=== PATIENT | male | born 1950 | race Caucasian/White ===

== ENCOUNTER → 2017-11-18 | Day surgery (SDC) | payer BC, OTHER ==
[2017-09-19 08:31] VITALS: BMI 43.0
[2017-11-06 08:57] VITALS: BMI 43.0
[~2017-11-18] VITALS: Ht 172.7 cm; Wt 127.3 kg
[~2017-11-18] MED LIST: ATOR10TA82 PO; ATROPINE SULFATE 0.1 MG/ML 5ML SYR IV PRN; EpHEDrine SULFATE INJ 50 MG/ML AMP IV PRN; KETAMINE HCL INJ 50 MG/ML 10 ML VIAL ONE; LIDOCAINE HCL 2% 2 ML VIAL (20MG/ML) ONE; PROPOFOL IV EMULSION 10 MG/ML 20 ML VIAL IV ONE
[2017-11-18 14:03] VITALS: Ht 172.7 cm; Wt 127.3 kg
--- NOTE | 2017-11-18 14:13 | Endo History and Physical ---
History & Physical Date of Service: Nov 18, 2017. Chief Complaint: screening Referring Physician: Dr Levin History of Present Illness For colonoscopy Past Surgical History Hx Cardiac Surgery: No Hx Internal Defibrillator: No Hx Pacemaker: No Hx Abdominal Surgery: No Hx of Implantable Prosthesis: No Hx Post-Op Nausea and Vomiting: No Hx Cancer Surgery: No Hx Thoracic Surgery: No Hx Orthopedic: No Hx Urinary Tract Surgery: No Family History Colon CA Social History Smoking Status: Never Smoker Hx Substance Use: No Hx Alcohol Use: No Allergies Coded Allergies: No Known Allergies (Unverified , 11/06/17) Current Medications Reported Home Medications Medications Dose Route/Sig Max Daily Dose Days Date Category Lipitor (Atorvastatin Calcium) 10 Mg Tab 10 Mg PO QAM 11/06/17 Reported Vital Signs Weight (Kilograms): 127.27 Height (Feet): 5 Height (Inches): 8 Physical Exam General Appearance: + obese Respiratory/Chest: Respiratory effort: no dyspnea Cardiovascular: Heart Auscultation: RRR Abdomen: Inspection & Palpation: soft Assessment and Plan For screening colonoscopy
--- NOTE | 2017-11-18 14:49 | Discharge Instructions ---
Endoscopy Patient Instructions Date / Procedure(s) Performed Nov 18, 2017. Colonoscopy Allergy Information Coded Allergies: No Known Allergies (Unverified , 11/06/17) Discharge Date / Findings Nov 18, 2017. diverticulosis, polyps Medication Instructions Restart Stopped Medication(s): resume meds Reported Home Medications Medications Dose Route/Sig Max Daily Dose Days Date Category Lipitor (Atorvastatin Calcium) 10 Mg Tab 10 Mg PO QAM 11/06/17 Reported Provider Instructions Activity Restrictions - No exercising or heavy lifting for 24 hours. - Do not drink alcohol the day of the procedure. - Do not drive a car or operate machinery until the day after the procedure. - Do not make any important decisions or sign important papers in 24 hours after the procedure. Following Day: - Return to full activity which may include returning to work/school. Diet Start your diet with liquids and light foods (jello, soup, juice, toast). Then eat your usual diet if not nauseated. Treatment For Common After Affects For mild abdominal pain, bloating, or excessive gas: - Rest - Eat lightly - Lie on right side Follow-Up Information Follow-up with Dr. Levin as scheduled Anesthesia Information What You Should Know You have had a procedure that required some medicine to reduce anxiety and discomfort. This treatment is called moderate sedation. After receiving the treatment, you may be sleepy, but you will be able to breathe on your own. The effects of the treatment may last for several hours. Follow these instructions along with Activity/Diet recommendations noted above: * Do NOT do anything where dizziness or clumsiness would be dangerous. * Rest quietly at home today, then you can be up and about tomorrow. * Have a responsible person stay with you the rest of today. * You may have had an I.V. today. If so, you may take the dressing off later today. Recommendations Call your doctor if: * Trouble breathing * Continuous vomiting for more than 24 hours * Temperature above 101 degrees * Severe abdominal pain or bloating * Pain not relieved by pain medicine ordered * There is increased drainage or redness from any incision * A large amount of rectal bleeding greater than 2-3 tablespoons. (If you had a polyp/s removed or have hemorrhoids, a small amount of blood - from the rectum is to be expected.) * You have any unanswered questions or concerns. IN THE EVENT OF A SERIOUS EMERGENCY, GO TO THE NEAREST EMERGENCY ROOM Your discharge instructions were prepared by provider Liang Mandujano. Patient Instructions Signature Page Jordon Duncan Patient (or Guardian) Signature/Date: I have read and understand the instructions given to me by my caregivers. Caregiver/RN/Doctor Signature/Date: The above-named patient and/or guardian has received patient instructions on this date. + Original Patient Signature Page (only) stays with chart. Please make copy for patient.
--- NOTE | 2017-11-18 14:54 | GI REPORT ---
Procedure Date: 11/18/2017 2:15 PM Procedure: Colonoscopy Indications: Screening for colorectal malignant neoplasm Medicines: Propofol total dose 200 mg IV, Ketamine 20 mg IV, Lidocaine 40 mg IV Complications: No immediate complications. Estimated Blood Loss: Estimated blood loss was minimal. Procedure: Pre-Anesthesia Assessment: - Prior to the procedure, a History and Physical was performed, and patient medications, allergies and sensitivities were reviewed. The patient's tolerance of previous anesthesia was reviewed. - The risks and benefits of the procedure and the sedation options and risks were discussed with the patient. All questions were answered and informed consent was obtained. After I obtained informed consent, the scope was passed under direct vision. Throughout the procedure, the patient's blood pressure, pulse, and oxygen saturations were monitored continuously. The scope was introduced through the anus and advanced to the cecum, identified by appendiceal orifice and ileocecal valve. The colonoscopy was performed without difficulty. The patient tolerated the procedure well. The quality of the bowel preparation was good. Findings: A few diverticula were found in the sigmoid colon. Two sessile polyps were found in the ascending colon. The polyps were 1 to 3 mm in size. These polyps were removed with a cold biopsy forceps. Resection and retrieval were complete. Estimated blood loss was minimal. A 3 mm polyp was found in the transverse colon. The polyp was sessile. The polyp was removed with a cold biopsy forceps. Resection and retrieval were complete. Estimated blood loss was minimal. Impression: - Diverticulosis in the sigmoid colon. - Two 1 to 3 mm polyps in the ascending colon, removed with a cold biopsy forceps. Resected and retrieved. - One 3 mm polyp in the transverse colon, removed with a cold biopsy forceps. Resected and retrieved. Recommendation: - Discharge patient to home (ambulatory). - Continue present medications. - Await pathology results. - Return to primary care physician MARKON. Liang Mandujano M.D. Liang Mandujano MD 11/18/2017 2:54:05 PM This report has been signed electronically. Note Initiated On: 11/18/2017 2:15 PM I attest to the content of the Intraoperative Record and orders documented therein, exceptions below
--- NOTE | 2017-11-18 15:12 | Anesthesiology Progress Note ---
Anesthesia Post Op Note Date & Time Nov 18, 2017 at 15:12 Vital Signs Pain Intensity: 0 Vital Signs Past 12 Hours Date Time Temp Pulse Resp B/P (MAP) Pulse Ox O2 Delivery O2 Flow Rate FiO2 11/18/17 15:07 63 16 141/80 (100) 97 Room Air 11/18/17 14:52 78 16 159/101 (120) 95 Room Air 11/18/17 14:09 36.5 78 18 177/83 (114) 95 Room Air Notes Mental Status: alert / awake / arousable, participated in evaluation Pt Amnestic to Procedure: Yes Nausea / Vomiting: adequately controlled Pain: adequately controlled Airway Patency, RR, SpO2: stable & adequate BP & HR: stable & adequate Hydration State: stable & adequate Anesthetic Complications: no major complications apparent
[2017-11-18 15:22] VITALS: BP 138/83; PULSE 61; O2SAT 97
== END | disposition home or self-care (01) ==
LOC: C.GI 13:30
PROVIDERS: ATTEND Internal Medicine Gastroenterology
DX: Z12.11 Encounter for screening for malignant neoplasm of colon (principal); K57.32 Diverticulitis of large intestine without perforation or abscess without bleeding; D12.2 Benign neoplasm of ascending colon; D12.3 Benign neoplasm of transverse colon; I10 Essential (primary) hypertension; Z79.899 Other long term (current) drug therapy; E66.01 Morbid (severe) obesity due to excess calories

== ENCOUNTER 2025-05-28 18:52 | Inpatient (IN) ==
--- NOTE | 2025-05-28 19:13 | Emergency Department Note ---
Impression & Plan Septic shock, Anaplasmosis ED Provider Note Provider: Chris Nevarez MD CHIEF COMPLAINT: Weakness, possible confusion, chills HISTORY OF PRESENT ILLNESS: Patient is a 75-year-old gentleman history of hyperlipidemia and diabetes presenting here today via ambulance from home. Patient evidently's been sick over approximately past 2 weeks by his EMS report. Patient states that during our test week he got caught in the rain and got wet and since then he has been having some weakness and some chills. He does report that his tends to keep the air conditioner fairly high. Saw his primary doctor at [facility] last week for evaluation and per his report no clear diagnosis. Has had ongoing generalized weakness. This worsened particularly over the last day or so according to EMS report. Patient states has had some ongoing chills but no specific pain. Family thought according to the ambulance report that he might been a little short of breath but he denies this to me. They stated that he seems somewhat confused and reported that the patient was putting on my close and was not himself at home. Patient denies this. Denies feeling confused. States some generalized weakness. Denies any significant wounds other than a small scrape on the right stevenson. Denies falls. Denies headache or dizziness right now or lightheadedness. Denies chest pain or again shortness of breath to me. Denies nausea vomiting but states he might be just a little bit constipated. Does endorse some urinary frequency. Denies burning with urination. Has taken ibuprofen last couple days in the morning but nothing this afternoon. Has been trying to drink a little bit of water i in addition to his diet Arnholly Jones's. PAST MEDICAL HISTORY: As noted above MEDICATIONS: Reviewed home medications SOCIAL HISTORY: Non-smoker, lives at home with , dog, and 2 cats PHYSICAL EXAM: GENERAL: alert and oriented in no acute distress on stretcher Head: normocephalic and atraumatic EYES: No injection, discharge or icterus. PERRL, EOMI. NECK: Trachea midline. Good range of motion ENT: Mucous membranes pink and moist. LUNGS: Airway patent. No retractions. Breath sounds clear with good air entry bilaterally. HEART: Irregular tachycardic rate and rhythm. No chest wall tenderness ABDOMEN: Soft and non-tender, without guarding or rebound. No flank tenderness. No masses appreciated. SKIN: Acyanotic, warm, dry, without rashes EXTREMITIES: Without swelling, tenderness or deformity other than a small healing scab on the right stevenson without redness. Soft compartments to lower extremities. NEUROLOGICAL: No focal deficits. No aphasia. No facial droop or slurred speech. Normal strength and tone in the extremities. Sensation to gross touch normal. EK bpm left axis right bundle branch block what appears to be likely a sinus tach with PACs as opposed to atrial flutter or A-fib. No ST segment elevation. QTc 464. CONTINUOUS CARDIAC MONITORING: was ordered and showed a heart rate of 90s-100s bpm in normal sinus rhythm/sinus tachycardia with PACs Patient's laboratory studies and imaging reviewed. Differential includes Infection, dehydration, metabolic abnormality, hypo/hyperglycemia, electrolyte disturbance, anemia, hypoxia, cardiac sources, intracerebral event, toxicologic, neurologic, as well as other pathologies. IMPRESSION/MEDICAL DECISION MAKING: No specific focal numbness or weakness at this time. No slurred speech. Seems less likely to CVA and does not appear meningitic. He is febrile here and tachycardic. Appears likely PACs rather than A-fib. No chest pain or shortness of breath report of the question of shortness of breath at home. Given 2 L IV normal saline fluids administered as his initial blood pressure is hypotensive. He is however denying significant lightheadedness or dizziness. Lactate and cultures send [id number] blood work obtained. Benign abdomen on exam but given his hypotension and fever without a clear source upon initial assessment, we will proceed with broad septic workup including CT imaging of the abdomen pelvis and a CTA of the chest to exclude pneumonia, PE, intra-abdominal abnormality or infection/abscess, and add a CT of the head to exclude any intracranial bleed although no traumas reported he has been reported to be in maybe a little bit confused. Again does not appear lethargic at this time just generally weak. Given a dose of Tylenol here for the fever. Lactate returns elevated 4.7. Broad-spectrum Zosyn ordered for antibiotic coverage pending further source identification. Repeat blood pressure on the left arm shows systolic blood pressure of 101 versus 60s systolic in the right arm. Creatinine 1.6 with BUN of 28 and a mild anion gap of 14 likely from his lactate elevation. Mild hyponatremia of 131 with normal potassium. Bili 1.2 but no significant LFT abnormalities. No evidence of hepatitis or pancreatitis. White blood cell count 6.3 with a hemoglobin of 13 and a platelet count of 206. Lyme/anaplasmosis/babesiosis screening labs were sent. UA pending collection. Procalcitonin 1.08. Again ordered broad coverage with Zosyn, doxycycline, and vancomycin. Blood smear concerning for anaplasmosis per lab. Again has been covered with IV doxycycline. Blood pressures later borderline started on low-dose Levophed. A total of 2.5 L normal saline ordered for fluids. Respiratory viral panel is negative. CT scan of the head, chest, and abdomen pelvis per radiology report without acute pneumonia or PE (some pulmonary fibrosis noted), no acute intra- abdominal findings noted without evidence of diverticulitis, no acute intracranial abnormality. Urinalysis pending collection. Discussed with the hospitalist team for further care here. Temperature is improving. Blood pressure improving with Levophed. Urinalysis appears negative. Did reach out discussed with the ICU [facility] regarding the case as well as he will require ICU admission with the need for vasopressors. DIAGNOSIS: Septic shock, anaplasmosis, weakness DISPOSITION: Hospitalist will evaluate Patient was agreeable with this plan. Critical Care I have personally spent 55 minutes of critical care time in the direct management of this patient. This includes bedside care, interpretation of diagnostic studies, and testing, discussion with consultants, patient, and family members, and other required patient management activities. These 55 minutes is in excess of all separately billable procedures. Past Med/Surg History Problem List (Updated 05/29/25 @ 00:01 by Miri Busch DO) Hyperlipidemia Acute metabolic encephalopathy Lactic acidosis Dehydration fever Acute kidney injury Hyperlipidemia associated with type 2 diabetes mellitus Diabetes mellitus Septic shock Anaplasmosis Social History Smoking Status: Never smoker Preferred Language: Japanese Feels Safe at Home: Yes Allergies Allergies Allergy/AdvReac Type Severity Reaction Status Date / Time No Known Allergies Allergy Verified 05/28/25 20:48 Home Meds Home Medications Medication Instructions Recorded Confirmed atorvastatin 40 mg tablet 40 mg PO DAILY 05/28/25 05/28/25 empagliflozin 25 mg tablet 25 mg PO DAILY 05/28/25 05/28/25 (Jardiance) lisinopril 5 mg tablet 5 mg PO DAILY 05/28/25 05/28/25 metformin 500 mg tablet,extended 1,000 mg PO BID 05/28/25 05/28/25 release 24 hr Results & Data (ED) Vital Signs Vital Signs - 24 hr 05/28/25 18:59 05/28/25 19:05 05/28/25 19:15 Temperature 39.9 C H Temperature Source Oral Pulse Rate 123 H 115 H 104 H Pulse Rate [Apical] Pulse Rate from SpO2 Sensor Respiratory Rate 30 H 32 H Respiratory Effort / Characteristics Short of Breath Respiratory Depth Shallow Respiratory Pattern Tachypnea Blood Pressure 76/58 L 82/51 L Blood Pressure [Right Arm] Blood Pressure Mean 64 61 Blood Pressure Mean [Right Arm] Blood Pressure Position Lying Blood Pressure Position [Right Arm] Pulse Oximetry 91 91 Oxygen Delivery Method Room Air Room Air Sepsis Recent Fever Within 48 Hours Yes Sepsis New/Unexplained Change in Mental Status No Sepsis Action Taken by Nursing Physician Notified 05/28/25 19:58 05/28/25 20:00 05/28/25 20:06 Temperature Temperature Source Pulse Rate 105 H Pulse Rate [Apical] Pulse Rate from SpO2 Sensor 104 H Respiratory Rate 31 H Respiratory Effort / Characteristics Respiratory Depth Respiratory Pattern Blood Pressure 81/43 L 70/43 L 69/42 L Blood Pressure [Right Arm] Blood Pressure Mean 44 53 51 Blood Pressure Mean [Right Arm] Blood Pressure Position Blood Pressure Position [Right Arm] Pulse Oximetry 93 Oxygen Delivery Method Sepsis Recent Fever Within 48 Hours Sepsis New/Unexplained Change in Mental Status Sepsis Action Taken by Nursing 05/28/25 20:22 05/28/25 20:24 05/28/25 20:30 Temperature Temperature Source Pulse Rate 107 H 109 H Pulse Rate [Apical] Pulse Rate from SpO2 Sensor 102 H 107 H Respiratory Rate 36 H 33 H Respiratory Effort / Characteristics Respiratory Depth Respiratory Pattern Blood Pressure 75/46 L 76/59 L Blood Pressure [Right Arm] Blood Pressure Mean 53 64 Blood Pressure Mean [Right Arm] Blood Pressure Position Blood Pressure Position [Right Arm] Pulse Oximetry 95 95 Oxygen Delivery Method Sepsis Recent Fever Within 48 Hours Sepsis New/Unexplained Change in Mental Status Sepsis Action Taken by Nursing 05/28/25 20:35 05/28/25 20:35 05/28/25 20:40 Temperature 38.9 C H Temperature Source Oral Pulse Rate 106 H Pulse Rate [Apical] 105 H Pulse Rate from SpO2 Sensor Respiratory Rate 30 H 33 H Respiratory Effort / Characteristics Non-Labored Respiratory Depth Respiratory Pattern Tachypnea Blood Pressure 77/49 L 85/59 L Blood Pressure [Right Arm] 77/49 L Blood Pressure Mean 52 72 Blood Pressure Mean [Right Arm] 58 Blood Pressure Position Blood Pressure Position [Right Arm] Lying Pulse Oximetry 94 94 Oxygen Delivery Method Room Air Sepsis Recent Fever Within 48 Hours Sepsis New/Unexplained Change in Mental Status Sepsis Action Taken by Nursing 05/28/25 20:45 05/28/25 20:50 05/28/25 20:50 Temperature Temperature Source Pulse Rate 108 H 107 H Pulse Rate [Apical] 104 H Pulse Rate from SpO2 Sensor Respiratory Rate 34 H 30 H 35 H Respiratory Effort / Characteristics Non-Labored Respiratory Depth Respiratory Pattern Rapid/Shallow Blood Pressure 88/57 L 76/58 L Blood Pressure [Right Arm] 76/58 L Blood Pressure Mean 69 63 Blood Pressure Mean [Right Arm] 64 Blood Pressure Position Blood Pressure Position [Right Arm] Lying Pulse Oximetry 95 96 95 Oxygen Delivery Method Room Air Sepsis Recent Fever Within 48 Hours Sepsis New/Unexplained Change in Mental Status Sepsis Action Taken by Nursing 05/28/25 20:55 05/28/25 20:56 05/28/25 21:00 Temperature Temperature Source Pulse Rate Pulse Rate [Apical] 103 H 107 H Pulse Rate from SpO2 Sensor Respiratory Rate 28 H Respiratory Effort / Characteristics Non-Labored Spontaneous Respiratory Depth Respiratory Pattern Blood Pressure 98/61 L Blood Pressure [Right Arm] 98/61 L 87/57 L Blood Pressure Mean 76 Blood Pressure Mean [Right Arm] 73 67 Blood Pressure Position Blood Pressure Position [Right Arm] Lying Pulse Oximetry 95 Oxygen Delivery Method Sepsis Recent Fever Within 48 Hours Sepsis New/Unexplained Change in Mental Status Sepsis Action Taken by Nursing 05/28/25 21:05 05/28/25 21:10 05/28/25 21:15 Temperature Temperature Source Pulse Rate 110 H Pulse Rate [Apical] Pulse Rate from SpO2 Sensor Respiratory Rate 29 H Respiratory Effort / Characteristics Respiratory Depth Respiratory Pattern Blood Pressure 89/55 L 90/57 L 93/61 L Blood Pressure [Right Arm] Blood Pressure Mean 67 65 70 Blood Pressure Mean [Right Arm] Blood Pressure Position Blood Pressure Position [Right Arm] Pulse Oximetry 95 Oxygen Delivery Method Sepsis Recent Fever Within 48 Hours Sepsis New/Unexplained Change in Mental Status Sepsis Action Taken by Nursing 05/28/25 21:20 05/28/25 21:35 05/28/25 21:40 Temperature Temperature Source Pulse Rate Pulse Rate [Apical] Pulse Rate from SpO2 Sensor Respiratory Rate Respiratory Effort / Characteristics Respiratory Depth Respiratory Pattern Blood Pressure 89/58 L 136/86 110/86 Blood Pressure [Right Arm] Blood Pressure Mean 63 90 93 Blood Pressure Mean [Right Arm] Blood Pressure Position Blood Pressure Position [Right Arm] Pulse Oximetry Oxygen Delivery Method Sepsis Recent Fever Within 48 Hours Sepsis New/Unexplained Change in Mental Status Sepsis Action Taken by Nursing 05/28/25 21:40 05/28/25 21:50 05/28/25 21:50 Temperature Temperature Source Pulse Rate Pulse Rate [Apical] Pulse Rate from SpO2 Sensor Respiratory Rate Respiratory Effort / Characteristics Respiratory Depth Respiratory Pattern Blood Pressure 110/86 103/83 103/83 Blood Pressure [Right Arm] Blood Pressure Mean 93 94 94 Blood Pressure Mean [Right Arm] Blood Pressure Position Blood Pressure Position [Right Arm] Pulse Oximetry Oxygen Delivery Method Sepsis Recent Fever Within 48 Hours Sepsis New/Unexplained Change in Mental Status Sepsis Action Taken by Nursing 05/28/25 21:50 05/28/25 21:54 05/28/25 22:00 Temperature Temperature Source Pulse Rate 107 H Pulse Rate [Apical] Pulse Rate from SpO2 Sensor 105 H Respiratory Rate 33 H Respiratory Effort / Characteristics Respiratory Depth Respiratory Pattern Blood Pressure 103/83 120/78 Blood Pressure [Right Arm] Blood Pressure Mean 94 94 Blood Pressure Mean [Right Arm] Blood Pressure Position Blood Pressure Position [Right Arm] Pulse Oximetry 93 Oxygen Delivery Method Sepsis Recent Fever Within 48 Hours Sepsis New/Unexplained Change in Mental Status Sepsis Action Taken by Nursing 05/28/25 22:00 05/28/25 22:03 05/28/25 22:05 Temperature Temperature Source Pulse Rate 105 H Pulse Rate [Apical] Pulse Rate from SpO2 Sensor 100 H Respiratory Rate 28 H Respiratory Effort / Characteristics Respiratory Depth Respiratory Pattern Blood Pressure 120/78 112/76 Blood Pressure [Right Arm] Blood Pressure Mean 94 81 Blood Pressure Mean [Right Arm] Blood Pressure Position Blood Pressure Position [Right Arm] Pulse Oximetry 94 Oxygen Delivery Method Sepsis Recent Fever Within 48 Hours Sepsis New/Unexplained Change in Mental Status Sepsis Action Taken by Nursing 05/28/25 22:05 05/28/25 22:06 05/28/25 22:21 Temperature Temperature Source Pulse Rate 97 H Pulse Rate [Apical] Pulse Rate from SpO2 Sensor 96 H Respiratory Rate 29 H Respiratory Effort / Characteristics Respiratory Depth Respiratory Pattern Blood Pressure 112/76 80/45 L Blood Pressure [Right Arm] Blood Pressure Mean 81 56 Blood Pressure Mean [Right Arm] Blood Pressure Position Blood Pressure Position [Right Arm] Pulse Oximetry 94 Oxygen Delivery Method Sepsis Recent Fever Within 48 Hours Sepsis New/Unexplained Change in Mental Status Sepsis Action Taken by Nursing 05/28/25 22:25 05/28/25 22:35 Temperature Temperature Source Pulse Rate Pulse Rate [Apical] Pulse Rate from SpO2 Sensor Respiratory Rate Respiratory Effort / Characteristics Respiratory Depth Respiratory Pattern Blood Pressure 82/53 L 90/57 L Blood Pressure [Right Arm] Blood Pressure Mean 65 67 Blood Pressure Mean [Right Arm] Blood Pressure Position Blood Pressure Position [Right Arm] Pulse Oximetry Oxygen Delivery Method Sepsis Recent Fever Within 48 Hours Sepsis New/Unexplained Change in Mental Status Sepsis Action Taken by Nursing Laboratory Data 05/28/25 19:05 05/28/25 19:05 Lab Results 05/28/25 05/28/25 05/28/25 Range/Units 19:05 19:20 21:31 WBC 6.36 (4.8-10.8) K/ul RBC 4.32 L (4.70-6.10) M/uL Hgb 13.0 L (14.0-18.0) g/dl Hct 39.1 L (42.0-52.0) % MCV 90.5 (80.0-100.0) fL MCH 30.1 (25.0-34.0) pg MCHC 33.2 (32.0-36.0) g/dL RDW Std Deviation 50.2 H (36.4-46.3) fL RDW Coeff of Noemy 15.1 H (11.5-14.5) % Plt Count 206 (130-400) K/uL MPV 10.1 (9.4-12.4) fL Immature Gran % (Auto) 0.5 % Neut % (Auto) 80.3 % Lymph % (Auto) 13.8 % Bailey % (Auto) 5.2 % Eos % (Auto) 0.0 % Baso % (Auto) 0.2 % Neut # (Auto) 5.11 (1.40-6.50) K/uL Lymph # (Auto) 0.88 L (1.20-3.40) K/uL Bailey # (Auto) 0.33 (0.11-0.59) K/uL Eos # (Auto) 0.00 (0.00-0.50) K/uL Baso # (Auto) 0.01 (0.00-0.20) K/uL Immature Gran # (Auto) 0.03 (0.01-0.20) K/uL PT 13.3 H (9.0-12.0) Seconds INR 1.2 H (0.9-1.1) Sodium 131 L (136-145) mmol/L Potassium 4.5 (3.5-5.1) mmol/L Chloride 97 L (98-107) mmol/L Carbon Dioxide 20 L (21-32) mmol/L Anion Gap 14 H (3-11) BUN 28 H (6-23) mg/dl Creatinine 1.64 H (0.6-1.4) mg/dl Est Cr Clr Drug Dosing Not Reportable eGFR 43.62 BUN/Creatinine Ratio 17.1 (10-20) Glucose 267 H (70-99(Fasting)) mg/dl Lactate 4.7 H* 1.0 (0.4-2.0) mmol/L Calcium 8.7 (8.6-10.3) mg/dl Phosphorus 1.3 L* (2.5-4.9) mg/dl Magnesium 0.9 L* (1.7-2.4) mg/dl Total Bilirubin 1.2 H (0.2-1.0) mg/dl AST 31 (13-39) U/L ALT 28 (7-52) U/L Alkaline Phosphatase 63 (34-104) U/L Troponin I High Sens 27.4 H 14.4 D (0-20) pg/ml Total Protein 7.2 (6.0-8.3) gm/dl Albumin 3.3 L (3.4-5.0) gm/dl Globulin 3.9 (2.5-4.0) gm/dl Albumin/Globulin Ratio 0.8 L (0.9-2) Lipase 20 (11-82) U/L Procalcitonin 1.08 H (0-0.5) ng/ml Random Cortisol 45.14 mcg/dl Adenovirus (PCR) Not Detected (NotDetected) Anaplasma Smear See Comment A B. pertussis DNA (PCR) Not Detected (NotDetected) B.parapertussis DNA PCR Not Detected (NotDetected) Lyme Disease Screen Negative (Negative) C. pneumoniae DNA (PCR) Not Detected (NotDetected) Coronavirus OC43 (PCR) Not Detected (NotDetected) Coronavirus HKU1 (PCR) Not Detected (NotDetected) Coronavirus 229E (PCR) Not Detected (NotDetected) SARS-CoV-2 (PCR) Not Detected (NotDetected) Coronavirus NL63 (PCR) Not Detected (NotDetected) Human Metapneumovir PCR Not Detected (NotDetected) Influenza Type A (PCR) Not Detected (NotDetected) Influenza Type B (PCR) Not Detected (NotDetected) M. pneumoniae (PCR) Not Detected (NotDetected) Parainfluenza 1 (PCR) Not Detected (NotDetected) Parainfluenza 2 (PCR) Not Detected (NotDetected) Parainfluenza 3 (PCR) Not Detected (NotDetected) Parainfluenza 4 (PCR) Not Detected (NotDetected) RSV (PCR) Not Detected (NotDetected) Entero/Rhino (PCR) Not Detected (NotDetected) Administered Medications Norepinephrine Bitartrate (Levophed/D5w) 4 mg in 250 mls @ 21.769 mls/hr IV .[id number] [facility]; Protocol Stop: 06/27/25 20:29 Last Titration: 05/28/25 22:31 Dose: 0.05 mcg/kg/min, 21.8 mls/hr Documented By: ALISSA Co-signed By: BS Titration: 05/28/25 22:07 Dose: 0.03 mcg/kg/min, 13.1 mls/hr Documented By: FEMI Co-signed By: ALISSA Titration: 05/28/25 21:50 Dose: 0.05 mcg/kg/min, 21.8 mls/hr Documented By: ALISSA Co-signed By: QGV Titration: 05/28/25 21:39 Dose: 0.07 mcg/kg/min, 30.5 mls/hr Documented By: ALISSA Co-signed By: NAW Titration: 05/28/25 20:51 Dose: 0.09 mcg/kg/min, 39.2 mls/hr Documented By: ALISSA Co-signed By: FEMI Titration: 05/28/25 20:27 Dose: 0.07 mcg/kg/min, 30.5 mls/hr Documented By: ALISSA Co-signed By: NAHED Admin: 05/28/25 20:17 Dose: 0.05 mcg/kg/min, 21.8 mls/hr Documented By: ALISSA Co-signed By: Lactated Ringer's (Lr) 1,000 mls @ 150 mls/hr IV .Q6H40M JOEY Stop: 05/29/25 04:39 Last Admin: 05/28/25 22:40 Dose: 150 mls/hr Documented By: ALISSA Discontinued Medications Acetaminophen (Acetaminophen 500 Mg Tab) 1,000 mg PO NOW STA Stop: 05/28/25 19:13 Last Admin: 05/28/25 19:26 Dose: 1,000 mg Documented By: ALISSA Sodium Chloride (Nss) 1,000 mls @ 999 mls/hr IV .Q1H1M JOEY Stop: 05/28/25 21:15 Last Infusion: 05/28/25 20:06 Dose: Infused Documented By: Admin: 05/28/25 19:26 Dose: 999 mls/hr Documented By: Infusion: 05/28/25 19:26 Dose: Infused Documented By: Admin: 05/28/25 19:20 Dose: 999 mls/hr Documented By: ALISSA Piperacillin Sod/Tazobactam Sod (Zosyn) 4.5 gm in 100 mls @ 200 mls/hr IV NOW ONE; Protocol Stop: 05/28/25 19:59 Last Infusion: 05/28/25 20:05 Dose: Infused Documented By: Infusion: 05/28/25 20:00 Dose: Infused Documented By: Admin: 05/28/25 19:38 Dose: 200 mls/hr Documented By: ALISSA Doxycycline Hyclate 100 mg/ (Dextrose) 100 mls @ 50 mls/hr IV NOW STA Stop: 05/28/25 21:46 Last Infusion: 05/28/25 22:38 Dose: Infused Documented By: Admin: 05/28/25 20:20 Dose: 50 mls/hr Documented By: ALISSA Sodium Chloride (Nss) 500 mls @ 999 mls/hr IV .Q31M ONE Stop: 05/28/25 20:32 Last Infusion: 05/28/25 22:39 Dose: Infused Documented By: Admin: 05/28/25 20:34 Dose: 999 mls/hr Documented By: ALISSA Vancomycin HCl 2,250 mg/ (Sodium Chloride) 545 mls @ 200 mls/hr IV NOW ONE Stop: 05/28/25 22:45 Last Infusion: 05/28/25 23:52 Dose: Infused Documented By: Admin: 05/28/25 20:55 Dose: 200 mls/hr Documented By: ALISSA Ioversol (Optiray 320 125ml) 118 ml IV ONCE ONE Stop: 05/28/25 19:47 Last Admin: 05/28/25 19:46 Dose: 118 ml Documented By: DAWIT Miscellaneous (Stat Iv Infusion Titration Per Protocol) 1 each N/A NOW STA Stop: 05/28/25 20:17 Last Admin: 05/28/25 20:57 Dose: 1 each Documented By: ALISSA Norepinephrine Bitartrate (Norepinephrine/D5w 4 Mg/250 Ml) Confirm Administered Dose 4 mg IV .STK-MED ONE Stop: 05/28/25 19:36 Last Admin: 05/28/25 20:57 Dose: Not Given Documented By: ALISSA Imaging Data Radiologist's Impression: Abdomen/Pelvis CT 05/28/25 19:06 Exam(s): CT ABDOMEN + PELVIS With Contrast EXAM: CT Abdomen and Pelvis With Intravenous Contrast CLINICAL HISTORY: Reason for exam: fever, weak, tachy. TECHNIQUE: Axial computed tomography images of the abdomen and pelvis with intravenous contrast. CTDI is 37 mGy and DLP is 1612 mGy-cm. Automated exposure control was utilized for the study. A dose lowering technique was utilized adhering to the principles of ALARA. CONTRAST: Contrast must be dictated COMPARISON: None FINDINGS: Limitations: Exam limited secondary to patient respiratory motion. Please see separate dictation for details of intrathoracic contents. Lung bases: Unremarkable. No mass. No consolidation. ABDOMEN: Liver: Hepatomegaly. Hepatic steatosis. Gallbladder and bile ducts: Unremarkable. No calcified stones. No ductal dilation. Pancreas: Unremarkable. No mass. No ductal dilation. Spleen: Spleen is unremarkable. Adrenals: Unremarkable. No mass. Kidneys and ureters: Simple 1.9 cm right renal cysts. No follow-up of these simple cysts is necessary. No hydronephrosis. Stomach and bowel: Diverticulosis without evidence of diverticulitis. No obstruction. PELVIS: Appendix: Normal-appearing appendix. Bladder: Unremarkable. No mass. Reproductive: Unremarkable as visualized. ABDOMEN and PELVIS: Intraperitoneal space: Unremarkable. No free air. No significant fluid collection. Bones/joints: Advanced multilevel degenerative changes of the lumbar spine. Soft tissues: Unremarkable. Vasculature: Unremarkable. No abdominal aortic aneurysm. Lymph nodes: Unremarkable. No enlarged lymph nodes. IMPRESSION: No acute findings in the abdomen or pelvis. Hepatomegaly with hepatic steatosis Diverticulosis without evidence of diverticulitis Electronically signed by: Chad Hilton MD 05/28/25 21:02 PM Chest CTA 05/28/25 19:06 Exam(s): CTA CHEST EXAM: CT Angiography Chest With Intravenous Contrast CLINICAL HISTORY: Reason for exam: PE, fever, tachy, weak. TECHNIQUE: Axial computed tomographic angiography images of the chest with intravenous contrast. CTDI is 37 mGy and DLP is 1612 mGy-cm. Automated exposure control was utilized for the study. A dose lowering technique was utilized adhering to the principles of ALARA. MIP reconstructed images were created and reviewed. COMPARISON: No relevant prior studies available. FINDINGS: Limitations: Exam limited secondary to patient respiratory motion. Pulmonary arteries: Unremarkable. No large central pulmonary embolus present on this exam. Aorta: No acute findings. No thoracic aortic aneurysm. Lungs: Diffuse pulmonary fibrosis. No lobar consolidations. Pleural space: Unremarkable. No significant effusion. No pneumothorax. Heart: Mild aortic and mitral valve calcifications. No cardiomegaly. No significant pericardial effusion. No evidence of RV dysfunction. Bones/joints: No acute fracture. No dislocation. Soft tissues: Unremarkable. Lymph nodes: Unremarkable. No enlarged lymph nodes. Liver: Hepatic steatosis. Spleen: Splenomegaly. IMPRESSION: Exam limited secondary to patient respiratory motion No large central pulmonary embolus Diffuse pulmonary fibrosis Hepatic steatosis Hepatomegaly Electronically signed by: Chad Hilton MD 05/28/25 20:[address] 05/28/25 19:06 Exam(s): CT HEAD Without Contrast EXAM: CT Head Without Intravenous Contrast CLINICAL HISTORY: Reason for exam: weak, confusion, fever. TECHNIQUE: Axial computed tomography images of the head/brain without intravenous contrast. CTDI is 37 mGy and DLP is 1612 mGy-cm. Automated exposure control was utilized for the study. A dose lowering technique was utilized adhering to the principles of ALARA. COMPARISON: No relevant prior studies available. FINDINGS: Brain: mild ischemic microangiopathy. No hemorrhage. Ventricles: Unremarkable. No ventriculomegaly. Bones/joints: Unremarkable. No acute fracture. Soft tissues: Unremarkable. Vasculature: Vascular calcification of the left vertebral artery. Sinuses: Unremarkable as visualized. No acute sinusitis. Mastoid air cells: Unremarkable as visualized. No mastoid effusion. IMPRESSION: No acute findings in the head/brain. Electronically signed by: Chad Hilton MD 05/28/25 21:12 PM Discharge Plan Visit Data Chief Complaint: Illness Stated Complaint: Illness ED Provider: Chris Nevarez Discharge Problem: Septic shock, Anaplasmosis Patient Disposition: Admitted As Inpatient Condition: Critical Discharge Instructions Interventions: ED Discharge Assessment Last Done: 05/28/25 23:26
[2025-05-28] MEDS: SODIUM CHLORIDE 0.9% 1,000 ML IV SCH (19:20)
[2025-05-28 19:25] LABS: Hematocrit (blood only) 39.1 % (42.0-52.0); Hemoglobin 13.0 g/dl (14.0-18.0); Immature Granulocytes # (auto) 0.03 K/uL (0.01-0.20); Immature Granulocytes % (auto) 0.5 %; Mean Corpuscular Hemoglobin 30.1 pg (25.0-34.0); Mean Corpuscular Volume 90.5 fL (80.0-100.0); Platelet Count 206 K/uL (130-400); RDW Standard Deviation 50.2 fL (36.4-46.3); Red Blood Count 4.32 M/uL (4.70-6.10); White Blood Count 6.36 K/ul (4.8-10.8)
[2025-05-28] MEDS: ACETAMINOPHEN 500 MG TAB PO STA (19:26)
[2025-05-28] MEDS: PIPERACILLIN/TAZOBACTAM 4.5 GM/100 ML BAG IV ONE (19:38)
[2025-05-28 19:42] LABS: Alanine Aminotransferase 28 U/L (7-52); Albumin Globulin Ratio 0.8 (0.9-2); Alkaline Phosphatase 63 U/L (34-104); Anion Gap 14 (3-11); Bilirubin,Total 1.2 mg/dl (0.2-1.0); Blood Urea Nitrogen 28 mg/dl (6-23); Calcium 8.7 mg/dl (8.6-10.3); Carbon Dioxide 20 mmol/L (21-32); Chloride 97 mmol/L (98-107); Globulin 3.9 gm/dl (2.5-4.0); Glucose 267 mg/dl (70-99(Fasting)); Lipase 20 U/L (11-82); Potassium 4.5 mmol/L (3.5-5.1); Sodium 131 mmol/L (136-145); Total Protein 7.2 gm/dl (6.0-8.3)
[2025-05-28] MEDS: OPTIRAY 320 125ml IV ONE (19:46)
[2025-05-28 19:47] LABS: Procalcitonin 1.08 ng/ml (0-0.5)
[2025-05-28 19:52] LABS: INR 1.2 (0.9-1.1); Prothrombin Time 13.3 Seconds (9.0-12.0)
[2025-05-28] MEDS ORDERED: VANCOMYCIN CONSULT ACTIVE PRN (20:02)
[2025-05-28 20:12] LABS: Lyme Screen Rflx Confirmation Negative (Negative)
[2025-05-28] MEDS: NOREPINEPHRINE/D5W 4 MG/250 ML PLCT IV SCH (20:17)
[2025-05-28 20:18] LABS: Chlamydia pneumoniae PCR Not Detected (NotDetected); Coronavirus 229E PCR Not Detected (NotDetected); Coronavirus CoV-2 (COVID19)PCR Not Detected (NotDetected); Coronavirus HKU1 PCR Not Detected (NotDetected); Coronavirus NL63 PCR Not Detected (NotDetected); Coronavirus OC43PCR Not Detected (NotDetected); Human Metapneumovirus PCR Not Detected (NotDetected); Parainfluenza Virus 1 PCR Not Detected (NotDetected); Parainfluenza Virus 2 PCR Not Detected (NotDetected); Parainfluenza Virus 3 PCR Not Detected (NotDetected); Parainfluenza Virus 4 PCR Not Detected (NotDetected); Respiratory Syncytial VirusPCR Not Detected (NotDetected); Rhinovirus/Enterovirus PCR Not Detected (NotDetected)
[2025-05-28] MEDS: DOXYCYCLINE HYCLATE 100 MG in DEXTROSE 5% MINI-B 100 ML IV STA (20:20)
[2025-05-28] MEDS: SODIUM CHLORIDE 0.9% 500 ML IV ONE (20:34)
[2025-05-28] MEDS: VANCOMYCIN HCL 2,250 MG in SODIUM CHLORIDE 0.9% 500 ML IV ONE (20:55)
[2025-05-28] MEDS: STAT IV Infusion **Titration per Protocol STA (20:57)
[2025-05-28] MEDS: NOREPINEPHRINE/D5W 4 MG/250 ML IV ONE (20:57)
--- NOTE | 2025-05-28 20:58 | CT Scan Report ---
Exam(s): CTA CHEST EXAM: CT Angiography Chest With Intravenous Contrast CLINICAL HISTORY: Reason for exam: PE, fever, tachy, weak. TECHNIQUE: Axial computed tomographic angiography images of the chest with intravenous contrast. CTDI is 37 mGy and DLP is 1612 mGy-cm. Automated exposure control was utilized for the study. A dose lowering technique was utilized adhering to the principles of ALARA. MIP reconstructed images were created and reviewed. COMPARISON: No relevant prior studies available. FINDINGS: Limitations: Exam limited secondary to patient respiratory motion. Pulmonary arteries: Unremarkable. No large central pulmonary embolus present on this exam. Aorta: No acute findings. No thoracic aortic aneurysm. Lungs: Diffuse pulmonary fibrosis. No lobar consolidations. Pleural space: Unremarkable. No significant effusion. No pneumothorax. Heart: Mild aortic and mitral valve calcifications. No cardiomegaly. No significant pericardial effusion. No evidence of RV dysfunction. Bones/joints: No acute fracture. No dislocation. Soft tissues: Unremarkable. Lymph nodes: Unremarkable. No enlarged lymph nodes. Liver: Hepatic steatosis. Spleen: Splenomegaly. IMPRESSION: Exam limited secondary to patient respiratory motion No large central pulmonary embolus Diffuse pulmonary fibrosis Hepatic steatosis Hepatomegaly Electronically signed by: Chad Hitlon MD 05/28/25 20:57 PM
--- NOTE | 2025-05-28 21:04 | CT Scan Report ---
Exam(s): CT ABDOMEN + PELVIS With Contrast EXAM: CT Abdomen and Pelvis With Intravenous Contrast CLINICAL HISTORY: Reason for exam: fever, weak, tachy. TECHNIQUE: Axial computed tomography images of the abdomen and pelvis with intravenous contrast. CTDI is 37 mGy and DLP is 1612 mGy-cm. Automated exposure control was utilized for the study. A dose lowering technique was utilized adhering to the principles of ALARA. CONTRAST: Contrast must be dictated COMPARISON: None FINDINGS: Limitations: Exam limited secondary to patient respiratory motion. Please see separate dictation for details of intrathoracic contents. Lung bases: Unremarkable. No mass. No consolidation. ABDOMEN: Liver: Hepatomegaly. Hepatic steatosis. Gallbladder and bile ducts: Unremarkable. No calcified stones. No ductal dilation. Pancreas: Unremarkable. No mass. No ductal dilation. Spleen: Spleen is unremarkable. Adrenals: Unremarkable. No mass. Kidneys and ureters: Simple 1.9 cm right renal cysts. No follow-up of these simple cysts is necessary. No hydronephrosis. Stomach and bowel: Diverticulosis without evidence of diverticulitis. No obstruction. PELVIS: Appendix: Normal-appearing appendix. Bladder: Unremarkable. No mass. Reproductive: Unremarkable as visualized. ABDOMEN and PELVIS: Intraperitoneal space: Unremarkable. No free air. No significant fluid collection. Bones/joints: Advanced multilevel degenerative changes of the lumbar spine. Soft tissues: Unremarkable. Vasculature: Unremarkable. No abdominal aortic aneurysm. Lymph nodes: Unremarkable. No enlarged lymph nodes. IMPRESSION: No acute findings in the abdomen or pelvis. Hepatomegaly with hepatic steatosis Diverticulosis without evidence of diverticulitis Electronically signed by: Chad Hilton MD 05/28/25 21:02 PM
--- NOTE | 2025-05-28 21:13 | CT Scan Report ---
Exam(s): CT HEAD Without Contrast EXAM: CT Head Without Intravenous Contrast CLINICAL HISTORY: Reason for exam: weak, confusion, fever. TECHNIQUE: Axial computed tomography images of the head/brain without intravenous contrast. CTDI is 37 mGy and DLP is 1612 mGy-cm. Automated exposure control was utilized for the study. A dose lowering technique was utilized adhering to the principles of ALARA. COMPARISON: No relevant prior studies available. FINDINGS: Brain: mild ischemic microangiopathy. No hemorrhage. Ventricles: Unremarkable. No ventriculomegaly. Bones/joints: Unremarkable. No acute fracture. Soft tissues: Unremarkable. Vasculature: Vascular calcification of the left vertebral artery. Sinuses: Unremarkable as visualized. No acute sinusitis. Mastoid air cells: Unremarkable as visualized. No mastoid effusion. IMPRESSION: No acute findings in the head/brain. Electronically signed by: Chad Hilton MD 05/28/25 21:12 PM
--- NOTE | 2025-05-28 21:42 | Critical Care Consultation ---
Date of Consultation May 28, 2025 Assessment & Plan (1) Anaplasmosis: (2) Septic shock: (3) Acute kidney injury: (4) Dehydration fever: (5) Lactic acidosis: (6) Acute metabolic encephalopathy: Plan Reason Critically Ill: 1. Acute metabolic encephalopathy i/s/o fever and hypotension, resolved 2. Anaplasmosis 3. Septic shock 2/2 #2 4. Acute kidney injury, prerenal 5. HAGMA 2/2 lactic acidosis 6. Atrial flutter with variable AV block Neuro - [facility] ICU: Negative RASS GOAL 0 APAP PRN pain/fever Sleep hygiene Cardiac - New onset atrial flutter, likely driven by sepsis and electrolyte disturbances. [id number] is 2, therapeutic anticoagulation ordered in the absence of co ntraindication Continue norepinephrine for MAP goal > 65mmHg Continued mIVF with LR Admit EKG without acute ischemia No prior TTE to reference Mild troponin bump likely demand in absence of symptomatology and in setting of arrhythmia Cardiology consult, appreciate recommendations. Patient sees Dr. Vo ([facility]) for preventative care Respiratory - No acute concerns SpO2 goal > 92% Diffuse pulmonary fibrosis noted on CT Chest, not known to patient. Defer to Dr. Reno's expertise regarding Pulmonary recommendations HOB 30, pulmonary hygiene GI - No acute concerns Hepatic steatosis noted on CT AP Diet: Advance as tolerated SUP: N/A Bowel regimen: Miralax RENAL/LYTES - Trend metabolic panel Replete electrolytes as indicated No current indication for victor catheter Bladder scan and straight cath PRN mIVF as above, encourage PO intake Trend lactate to clearance ENDO - A1c pending, non-insulin dependent DMII Metformin and Jardiance held while IP BG 140-180 per [facility] guidelines ISS if needed while inpatient HEME - Anaplasmosis smear +, awaiting infected neutrophil count/% Maintain on Doxycycline for now, steroids or additional therapies per Pathology recommendations ID - Anaplasmosis, no other clear source of infection on work-up Continue Doxycycline, consider D/C Zosyn UA WNL, BC x2 pending, MRSA pending, RVP negative LINES/TUBES/DRAINS - PIV x2 DVT PROPHYLAXIS - Heparin infusion I have personally spent 35 minutes of critical care time in the direct management of this patient. This is a life/limb threatening event. This includes time spent evaluating patient, direct bedside care, chart review, placing orders, interpretation of diagnostic studies, discussion with consultants, patient, and family members, as well as other required patient management acti vities. This time is exclusive of all separately billable procedures, and teaching time and separate from and in addition to any other critical care service time. Thank you for allowing us to participate in the care of this patient. Please refer to my attending physician's documentation for any further recommendations. History of Present Illness Reason for Consultation: Septic shock Requesting Physician: Narayan Attending Physician: Narayan History of Present Illness Mr. Jordon Duncan is a pleasant 75YOM with a history of obesity, hyperlipidemia, and NIDDMII (unknown last A1c) who presented to [facility] ED from home on the evening of 05/28/2025 with complaints of 2 weeks of progressive weakness. Per report, family also noted increasing confusion over the past few days. Patient hypotensive, tachycardic, and febrile to 40C on arrival to ED. He received 2.5L (30cc/kg) IVF bolus with persistent hypotension. Placed on low dose norepinephrine for blood pressure support with improvement. Received PO APAP, IV Doxycycline, IV Zosyn. His work-up has been remarkable for acute kidney injury (Cr 1.64), HAGMA 2/2 lactic acidosis, mild hyponatremia, mildly elevated Tbili and INR, procalcitonin of 1.08, and + anaplasmosis smear. Imaging revealed diffuse pulmonary fibrosis, scan negative for PE, CT AP grossly negative. CTH WNL. He is admitted to ICU for continuation of care in the setting of septic shock. Patient was seen in ED C06. He is AAOx3. Family at bedside. Patient is in good spirits, appears to be in no acute distress. He is able to speak in full sentences. Saturating well on RA. Fever present but improved. Levophed at 0.07mcg/kg/min. Patient relays that for 2 weeks he has been feeling weak with lack of appetite. Saw his PCP who felt it was likely a viral infection and recommended supportive care. Patient presented to ED after his symptoms did not improve. He does not recall a tick bite and no recent [place] as well as dogs who occasionally come home with ticks. ROS is positive for weakness, anorexia, fevers/chills, altered mentation, otherwise negative. Specifically denies chest pain, shortness of breath, abd ominal pain, indigestion, cramping/myalgias, rash, edema, vision changes, headaches. Allergies Allergy/AdvReac Type Severity Reaction Status Date / Time No Known Allergies Allergy Verified 05/28/25 20:48 Home Medications Medication Instructions Recorded Confirmed Type atorvastatin 40 mg tablet 40 mg PO DAILY 05/28/25 05/28/25 History empagliflozin 25 mg tablet 25 mg PO DAILY 05/28/25 05/28/25 History (Jardiance) lisinopril 5 mg tablet 5 mg PO DAILY 05/28/25 05/28/25 History metformin 500 mg tablet,extended 1,000 mg PO BID 05/28/25 05/28/25 History release 24 hr Patient History Social History Smoking Status: Former smoker Do You Dip or Chew Tobacco: No; Hx Alcohol Use: Yes Hx Substance Use: No Preferred Language: Turkish Communication Ability: Effective Passenger Brakeman Required: No Beliefs That Will Affect Care: None Current Living Situation: Spouse Feels Safe at Home: Yes Safety Concerns: Feels Safe At This Time Assistive Devices: Glasses Review of Systems Review of Systems: All systems reviewed & are unremarkable except as noted in HPI & below Physical Exam Constitutional: WD/WN, vitals as above Eyes: PERRL, conjunctivae normal, anicteric sclerae Neck: trachea midline, no thyromegaly Respiratory: normal respiratory effort; no cough Cardiovascular: RRR, no murmur, no edema Gastrointestinal (Abdomen): Inspection/Auscultation: abdomen normal to inspection and normal bowel sounds; abdomen not distended and no abdominal edema Percussion/Palpation: abdomen soft and + hepatomegaly; abdomen nontender and no guarding Musculoskeletal: no cyanosis or clubbing, extremities motor strength 5/5 Skin: no rashes, warm and dry [] Rash? Neurologic: PERRL, EOMI, accommodation nl, no face palsy, no dysarthria Genitourinary: Deferred Results & Data Results & Data Vital Signs (Past 12 Hours) Vital Signs Temp Pulse Pulse Resp BP BP Pulse Ox 05/28/25 21:00 107 H 28 H 87/57 L 95 05/28/25 20:56 103 H 98/61 L 05/28/25 20:50 104 H 30 H 76/58 L 96 05/28/25 20:35 38.9 C H 105 H 30 H 77/49 L 94 05/28/25 20:24 107 H 36 H 95 05/28/25 20:22 75/46 L 05/28/25 20:06 105 H 31 H 69/42 L 93 05/28/25 20:00 70/43 L 05/28/25 19:58 81/43 L 05/28/25 19:15 104 H 32 H 82/51 L 91 05/28/25 19:05 115 H 05/28/25 18:59 39.9 C H 123 H 30 H 76/58 L 91 O2 Del Method 05/28/25 21:00 05/28/25 20:56 05/28/25 20:50 Room Air 05/28/25 20:35 Room Air 05/28/25 20:24 05/28/25 20:22 05/28/25 20:06 05/28/25 20:00 05/28/25 19:58 05/28/25 19:15 Room Air 05/28/25 19:05 05/28/25 18:59 Room Air Laboratory Results Reviewed Diagnostic Findings Reviewed Medications Administered See MAR Coding Level of Care Code 09401 IN/OBS CONSULT LVL 2,35M Diagnoses Anaplasmosis A77.49 Septic shock A41.9; R65.21 Acute kidney injury N17.9 Dehydration fever R50.9 Lactic acidosis E87.20 Acute metabolic encephalopathy G93.41 Time Spent (min) 35
--- NOTE | 2025-05-28 21:58 | History & Physical Report ---
Date of Service May 28, 2025 Assessment & Plan (1) Septic shock: (2) Anaplasmosis: (3) Diabetes mellitus: (4) Hyperlipidemia: Plan 75yo male with history of DM, Hyperlipidemia presenting with two weeks of generalized illness. Patient with sepsis, present on admission with fever, tachycardia, hypotension unresponsive to IV crystalloid resuscitation. 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 Patient received his sepsis fluid amount of crystalloid at 30mL/kg -Admit to MICU -Follow cultures sent from the ER -Doxycycline 100mg IV BID -Continue IVF - LR at 150mL/hr x 1L ordered -Continue Levophed gtt, goal MAP >65 -Place Mccormick catheter for strict intake/output monitoring -Tylenol PRN fever -Zofran PRN nausea #High anion gap metabolic acidosis - Gap=14. Elevated Lactate on arrival at 4.7 which has normalized to 1 following IVF. Likely multifactorial, elevated lactate, likely elevated Cr although no baseline value to compare. -Continue IVF, treatment of underlying infection -Repeat chemistry in AM #Hyperlipidemia -Continue Atorvastatin 40mg PO daily #Diabetes - patient on Jardiance -Lantus 5u BID -ISS -Goal blood sugar 110 - 180 #Hypomagnesemia - Mg=0.9 -5gm IV magnesium ordered -Repeat level in AM with continued repletion as needed #Hypophosphatemia -KPhos 21mmol with repeat labs in AM, continue repletion as needed #Diffuse pulmonary fibrosis noted on CTA chest. Patient with no known diagnosis of such. Denies complaint of SOB, cough or wheeze -Appreciate Pulm/CC input regarding recommendations on future workup and management History of Present Illness Chief Complaint: fever, chills, confusion Primary Care Provider: DO Jordon Vitale Perla is a pleasant 75yo male with history of DM, HLP presenting with two weeks of subjective fever, chills, weakness and some confusion as well as difficulty ambulating. Patient reports that two [place] the [place]. He went home and changed clothes then began feeling chills and fatigue. He continued to feel fatigued, persistent for the last several weeks. He was seen at [facility] and told that he likely had a virus and that he would likely feel better soon. He denies cough, SOB, chest pain, joint pain, rash, abdominal pain, nausea, vomiting, diarrhea, urinary complaints. No additional complaints at this time. He reports that his symptoms have been progressive - he has some time that he feels a little improved but overall has not been feeling well. He does not recall a tick bite but has dogs that occasionally have ticks and has deer that pass through his property frequently. In the ER he has elevated temperature at 39.9, tachycardia at 107bpm, hypotension with blood pressure in the 70/50's. He was administered 2L crystalloid with persistent hypotension therefore was started on Levophed. When evaluated he was on Levophed 0.07mcg/kg/min with adequately controlled blood pressure. ER Course: NSS x 2.5L Tylenol 1gm Zosyn 4.5gm Vancomycin 2250 mg IV Doxycycline 100mg IV Levophed Allergies Allergy/AdvReac Type Severity Reaction Status Date / Time No Known Allergies Allergy Verified 05/28/25 20:48 Home Medications Medication Instructions Recorded Confirmed Type atorvastatin 40 mg tablet 40 mg PO DAILY 05/28/25 05/28/25 History empagliflozin 25 mg tablet 25 mg PO DAILY 05/28/25 05/28/25 History (Jardiance) lisinopril 5 mg tablet 5 mg PO DAILY 05/28/25 05/28/25 History metformin 500 mg tablet,extended 1,000 mg PO BID 05/28/25 05/28/25 History release 24 hr Past Med/Surg History Problem List (Updated 05/29/25 @ 00:01 by Miri Busch DO) Hyperlipidemia Acute metabolic encephalopathy Lactic acidosis Dehydration fever Acute kidney injury Hyperlipidemia associated with type 2 diabetes mellitus Diabetes mellitus Septic shock Anaplasmosis Social History Smoking Status: Never smoker Preferred Language: Turkmen Feels Safe at Home: Yes Review of Systems Review of Systems: All systems reviewed & are unremarkable except as noted in HPI & below Physical Exam Physical Exam: General: patient resting comfortably, NAD, non-toxic in appearance, AA&O x 4 Skin: warm, dry, intact, no rashes or lesions HEENT: NC/AT, PERRL, EOMI, anicteric sclera, conjunctiva without injection, external ear normal to inspection and nontender, nares patent, moist mucus membranes, dentition intact, no oropharyngeal lesions, neck supple, trachea midline, no LAD, no thyromegaly, no JVD Heart: +S1/S2, regular, no m/r/g Lungs: equal air entry bilaterally, no rales/rhonchi/wheezes Abd: +BS, soft, NT/ND, no masses/organomegaly/ascites Ext: warm, 2+ pulses in UE/LE bilaterally, no clubbing/cyanosis or edema Neuro: nonfocal, patient AA&O x 4, speech intact, no facial droop, moving all extremities on command with equal strength 5/5 Results & Data Results & Data Vital Signs (Past 12 Hours) Vital Signs Temp Pulse Pulse Resp BP BP Pulse Ox 05/28/25 21:40 110/86 05/28/25 21:35 136/86 05/28/25 21:20 89/58 L 05/28/25 21:15 110 H 29 H 93/61 L 95 05/28/25 21:10 90/57 L 05/28/25 21:05 89/55 L 05/28/25 21:00 107 H 28 H 87/57 L 95 05/28/25 20:56 103 H 98/61 L 05/28/25 20:55 98/61 L 05/28/25 20:50 107 H 35 H 76/58 L 95 05/28/25 20:50 104 H 30 H 76/58 L 96 05/28/25 20:45 108 H 34 H 88/57 L 95 05/28/25 20:40 106 H 33 H 85/59 L 94 05/28/25 20:35 77/49 L 05/28/25 20:35 38.9 C H 105 H 30 H 77/49 L 94 05/28/25 20:30 109 H 33 H 76/59 L 95 05/28/25 20:24 107 H 36 H 95 05/28/25 20:22 75/46 L 05/28/25 20:06 105 H 31 H 69/42 L 93 05/28/25 20:00 70/43 L 05/28/25 19:58 81/43 L 05/28/25 19:15 104 H 32 H 82/51 L 91 05/28/25 19:05 115 H 05/28/25 18:59 39.9 C H 123 H 30 H 76/58 L 91 O2 Del Method 05/28/25 21:40 05/28/25 21:35 05/28/25 21:20 05/28/25 21:15 05/28/25 21:10 05/28/25 21:05 05/28/25 21:00 05/28/25 20:56 05/28/25 20:55 05/28/25 20:50 05/28/25 20:50 Room Air 05/28/25 20:45 05/28/25 20:40 05/28/25 20:35 05/28/25 20:35 Room Air 05/28/25 20:30 05/28/25 20:24 05/28/25 20:22 05/28/25 20:06 05/28/25 20:00 05/28/25 19:58 05/28/25 19:15 Room Air 05/28/25 19:05 05/28/25 18:59 Room Air Laboratory Results Laboratory Results WBC 6.36 K/ul (4.8-10.8) 05/28/25 19:05 RBC 4.32 M/uL (4.70-6.10) L 05/28/25 19:05 Hgb 13.0 g/dl (14.0-18.0) L 05/28/25 19:05 Hct 39.1 % (42.0-52.0) L 05/28/25 19:05 MCV 90.5 fL (80.0-100.0) 05/28/25 19:05 MCH 30.1 pg (25.0-34.0) 05/28/25 19:05 MCHC 33.2 g/dL (32.0-36.0) 05/28/25 19:05 RDW Std Deviation 50.2 fL (36.4-46.3) H 05/28/25 19:05 RDW Coeff of Noemy 15.1 % (11.5-14.5) H 05/28/25 19:05 Plt Count 206 K/uL (130-400) 05/28/25 19:05 MPV 10.1 fL (9.4-12.4) 05/28/25 19:05 Immature Gran % (Auto) 0.5 % 05/28/25 19:05 Neut % (Auto) 80.3 % 05/28/25 19:05 Lymph % (Auto) 13.8 % 05/28/25 19:05 [place] % (Auto) 5.2 % 05/28/25 19:05 Eos % (Auto) 0.0 % 05/28/25 19:05 Baso % (Auto) 0.2 % 05/28/25 19:05 Neut # (Auto) 5.11 K/uL (1.40-6.50) 05/28/25 19:05 Lymph # (Auto) 0.88 K/uL (1.20-3.40) L 05/28/25 19:05 [place] # (Auto) 0.33 K/uL (0.11-0.59) 05/28/25 19:05 Eos # (Auto) 0.00 K/uL (0.00-0.50) 05/28/25 19:05 Baso # (Auto) 0.01 K/uL (0.00-0.20) 05/28/25 19:05 Immature Gran # (Auto) 0.03 K/uL (0.01-0.20) 05/28/25 19:05 PT 13.3 Seconds (9.0-12.0) H 05/28/25 19:05 INR 1.2 (0.9-1.1) H 05/28/25 19:05 Sodium 131 mmol/L (136-145) L 05/28/25 19:05 Potassium 4.5 mmol/L (3.5-5.1) 05/28/25 19:05 Chloride 97 mmol/L (98-107) L 05/28/25 19:05 Carbon Dioxide 20 mmol/L (21-32) L 05/28/25 19:05 Anion Gap 14 (3-11) H 05/28/25 19:05 BUN 28 mg/dl (6-23) H 05/28/25 19:05 Creatinine 1.64 mg/dl (0.6-1.4) H 05/28/25 19:05 Est Cr Clr Drug Dosing Not Reportable 05/28/25 19:05 eGFR 43.62 05/28/25 19:05 BUN/Creatinine Ratio 17.1 (10-20) 05/28/25 19:05 Glucose 267 mg/dl (70-99(Fasting)) H 05/28/25 19:05 POC Glucose 181 mg/dl (70-99) H 05/28/25 23:54 Lactate 1.0 mmol/L (0.4-2.0) 05/28/25 21:31 Calcium 8.7 mg/dl (8.6-10.3) 05/28/25 19:05 Phosphorus 1.3 mg/dl (2.5-4.9) L* 05/28/25 21: Magnesium 0.9 mg/dl (1.7-2.4) L* 05/28/25 21: Total Bilirubin 1.2 mg/dl (0.2-1.0) H 05/28/25 19:05 AST 31 U/L (13-39) 05/28/25 19:05 ALT 28 U/L (7-52) 05/28/25 19:05 Alkaline Phosphatase 63 U/L (34-104) 05/28/25 19:05 Troponin I High Sens 14.4 pg/ml (0-20) D 05/28/25 21:31 Total Protein 7.2 gm/dl (6.0-8.3) 05/28/25 19:05 Albumin 3.3 gm/dl (3.4-5.0) L 05/28/25 19:05 Globulin 3.9 gm/dl (2.5-4.0) 05/28/25 19:05 Albumin/Globulin Ratio 0.8 (0.9-2) L 05/28/25 19:05 Lipase 20 U/L (11-82) 05/28/25 19:05 Procalcitonin 1.08 ng/ml (0-0.5) H 05/28/25 19:05 Random Cortisol 45.14 mcg/dl 05/28/25 19:05 Urine Color Yellow 05/28/25 Unknown Urine Appearance Clear (Clear) 05/28/25 Unknown Urine pH 5.0 (4.5-7.5) 05/28/25 Unknown Ur Specific [place] > 1.045 (1.000-1.030) H 05/28/25 Unknown Urine Protein 1+ (Negative) H 05/28/25 Unknown Urine Glucose (UA) 3+ (Negative) H 05/28/25 Unknown Urine Ketones Trace (Negative) H 05/28/25 Unknown Urine Blood Negative (Negative) 05/28/25 Unknown Urine Nitrite Negative (Negative) 05/28/25 Unknown Urine Bilirubin Negative (Negative) 05/28/25 Unknown Urine Urobilinogen Negative (Negative) 05/28/25 Unknown Ur Leukocyte Esterase Negative (Negative) 05/28/25 Unknown Urine WBC (Auto) 0-5 /hpf (0-5) 05/28/25 Unknown Urine RBC (Auto) 0-2 /hpf (0-2) 05/28/25 Unknown U Hyaline Cast (Auto) 3-5 /lpf (0-2) H 05/28/25 Unknown U Epithel Cells (Auto) 3-5 /hpf (0-2) H 05/28/25 Unknown Urine Bacteria (Auto) None Seen (None Seen) 05/28/25 Unknown Urine Comment 05/28/25 Unknown Adenovirus (PCR) Not Detected (NotDetected) 05/28/25 19:20 Anaplasma Smear See Comment A 05/28/25 19:05 B. pertussis DNA (PCR) Not Detected (NotDetected) 05/28/25 19:20 B.parapertussis DNA PCR Not Detected (NotDetected) 05/28/25 19:20 Lyme Disease Screen Negative (Negative) 05/28/25 19:05 C. pneumoniae DNA (PCR) Not Detected (NotDetected) 05/28/25 19:20 Coronavirus OC43 (PCR) Not Detected (NotDetected) 05/28/25 19:20 Coronavirus HKU1 (PCR) Not Detected (NotDetected) 05/28/25 19:20 Coronavirus 229E (PCR) Not Detected (NotDetected) 05/28/25 19:20 SARS-CoV-2 (PCR) Not Detected (NotDetected) 05/28/25 19:20 Coronavirus NL63 (PCR) Not Detected (NotDetected) 05/28/25 19:20 Human Metapneumovir PCR Not Detected (NotDetected) 05/28/25 19:20 Influenza Type A (PCR) Not Detected (NotDetected) 05/28/25 19:20 Influenza Type B (PCR) Not Detected (NotDetected) 05/28/25 19:20 M. pneumoniae (PCR) Not Detected (NotDetected) 05/28/25 19:20 Parainfluenza 1 (PCR) Not Detected (NotDetected) 05/28/25 19:20 Parainfluenza 2 (PCR) Not Detected (NotDetected) 05/28/25 19:20 Parainfluenza 3 (PCR) Not Detected (NotDetected) 05/28/25 19:20 Parainfluenza 4 (PCR) Not Detected (NotDetected) 05/28/25 19:20 RSV (PCR) Not Detected (NotDetected) 05/28/25 19:20 Entero/Rhino (PCR) Not Detected (NotDetected) 05/28/25 19:20 Impressions Abdomen/Pelvis CT 05/28/25 19:06 Exam(s): CT ABDOMEN + PELVIS With Contrast EXAM: CT Abdomen and Pelvis With Intravenous Contrast CLINICAL HISTORY: Reason for exam: fever, weak, tachy. TECHNIQUE: Axial computed tomography images of the abdomen and pelvis with intravenous contrast. CTDI is 37 mGy and DLP is 1612 mGy-cm. Automated exposure control was utilized for the study. A dose lowering technique was utilized adhering to the principles of ALARA. CONTRAST: Contrast must be dictated COMPARISON: None FINDINGS: Limitations: Exam limited secondary to patient respiratory motion. Please see separate dictation for details of intrathoracic contents. Lung bases: Unremarkable. No mass. No consolidation. ABDOMEN: Liver: Hepatomegaly. Hepatic steatosis. Gallbladder and bile ducts: Unremarkable. No calcified stones. No ductal dilation. Pancreas: Unremarkable. No mass. No ductal dilation. Spleen: Spleen is unremarkable. Adrenals: Unremarkable. No mass. Kidneys and ureters: Simple 1.9 cm right renal cysts. No follow-up of these simple cysts is necessary. No hydronephrosis. Stomach and bowel: Diverticulosis without evidence of diverticulitis. No obstruction. PELVIS: Appendix: Normal-appearing appendix. Bladder: Unremarkable. No mass. Reproductive: Unremarkable as visualized. ABDOMEN and PELVIS: Intraperitoneal space: Unremarkable. No free air. No significant fluid collection. Bones/joints: Advanced multilevel degenerative changes of the lumbar spine. Soft tissues: Unremarkable. Vasculature: Unremarkable. No abdominal aortic aneurysm. Lymph nodes: Unremarkable. No enlarged lymph nodes. IMPRESSION: No acute findings in the abdomen or pelvis. Hepatomegaly with hepatic steatosis Diverticulosis without evidence of diverticulitis Electronically signed by: Chad Hilton MD 05/28/25 21:02 PM Chest CTA 05/28/25 19:06 Exam(s): CTA CHEST EXAM: CT Angiography Chest With Intravenous Contrast CLINICAL HISTORY: Reason for exam: PE, fever, tachy, weak. TECHNIQUE: Axial computed tomographic angiography images of the chest with intravenous contrast. CTDI is 37 mGy and DLP is 1612 mGy-cm. Automated exposure control was utilized for the study. A dose lowering technique was utilized adhering to the principles of ALARA. MIP reconstructed images were created and reviewed. COMPARISON: No relevant prior studies available. FINDINGS: Limitations: Exam limited secondary to patient respiratory motion. Pulmonary arteries: Unremarkable. No large central pulmonary embolus present on this exam. Aorta: No acute findings. No thoracic aortic aneurysm. Lungs: Diffuse pulmonary fibrosis. No lobar consolidations. Pleural space: Unremarkable. No significant effusion. No pneumothorax. Heart: Mild aortic and mitral valve calcifications. No cardiomegaly. No significant pericardial effusion. No evidence of RV dysfunction. Bones/joints: No acute fracture. No dislocation. Soft tissues: Unremarkable. Lymph nodes: Unremarkable. No enlarged lymph nodes. Liver: Hepatic steatosis. Spleen: Splenomegaly. IMPRESSION: Exam limited secondary to patient respiratory motion No large central pulmonary embolus Diffuse pulmonary fibrosis Hepatic steatosis Hepatomegaly Electronically signed by: Chad Hilton MD 05/28/25 20:[address] 05/28/25 19:06 Exam(s): CT HEAD Without Contrast EXAM: CT Head Without Intravenous Contrast CLINICAL HISTORY: Reason for exam: weak, confusion, fever. TECHNIQUE: Axial computed tomography images of the head/brain without intravenous contrast. CTDI is 37 mGy and DLP is 1612 mGy-cm. Automated exposure control was utilized for the study. A dose lowering technique was utilized adhering to the principles of ALARA. COMPARISON: No relevant prior studies available. FINDINGS: Brain: mild ischemic microangiopathy. No hemorrhage. Ventricles: Unremarkable. No ventriculomegaly. Bones/joints: Unremarkable. No acute fracture. Soft tissues: Unremarkable. Vasculature: Vascular calcification of the left vertebral artery. Sinuses: Unremarkable as visualized. No acute sinusitis. Mastoid air cells: Unremarkable as visualized. No mastoid effusion. IMPRESSION: No acute findings in the head/brain. Electronically signed by: Chad Hilton MD 05/28/25 21:12 PM PG Care Time/CCT Total # of Minutes Spent Total Time Spent with Patient: Total time spent is greater than 50% in coordination of care (as documented) at patient's floor/unit and/or counseling patient: Coding Level of Care Code 87339 INT INP/OBS CARE 3/75MIN Diagnoses Septic shock A41.9; R65.21 Anaplasmosis A77.49 Diabetes mellitus E11.9 Hyperlipidemia E78.5
[2025-05-28 21:59] LABS: Appearance Urine Clear (Clear); Bacteria Urine Automated None Seen (None Seen); Glucose Urine UA 3+ (Negative); RBC Urine Automated 0-2 /hpf (0-2); WBC Urine Automated 0-5 /hpf (0-5)
[2025-05-28 22:14] LABS: Magnesium 0.9 mg/dl (1.7-2.4)
[2025-05-28] MEDS: LACTATED RINGER'S 1,000 ML IV SCH (22:40)
[2025-05-28] MEDS ORDERED: DOCUSATE SODIUM 100 MG CAP PO PRN (23:47)
[2025-05-28] MEDS ORDERED: GLUCOSE 40% GEL 15 GM TUBE PO PRN (23:47)
[2025-05-28] MEDS ORDERED: ONDANSETRON INJ 2 MG/ML 2 ML VIAL IV PRN (23:47)
[2025-05-28] MEDS ORDERED: GLUCOSE 10 TAB/TUBE PO PRN (23:47)
[2025-05-28] MEDS ORDERED: ACETAMINOPHEN 325 MG TAB PO PRN (23:47)
[2025-05-28] MEDS ORDERED: DEXTROSE 50% 50 ML SYRINGE IV PRN (23:47)
[2025-05-28] MEDS ORDERED: GLUCAGON FOR INJ 1 MG VIAL SQ PRN (23:47)
[2025-05-28] MEDS ORDERED: CARBOHYDRATES FOR HYPOGLYCEMIA PO PRN (23:47)
[2025-05-28] MEDS: INSULIN ASPART PER UNIT CHARGE SC SCH (23:59)
[2025-05-29] MEDS ORDERED: Heparin IV Adult Wt-Based Standard w/ INITIAL Bolus Protocol IV STA (00:23)
[2025-05-29] MEDS: POTASSIUM PHOSPHATE 21 MMOL in SODIUM CHLORIDE 0.9% 500 ML IV ONE (00:35)
[2025-05-29] MEDS: MAGNESIUM SULFATE / D5W 1 GM/100 ML BAG IV SCH (00:35)
[2025-05-29] MEDS: POTASSIUM PHOS 3 MMOL/1 ML INFUSION IV STA (00:44)
[2025-05-29] MEDS: HEPARIN 25000 UNIT/500 ML D5W 25,000 UNITS/500 ML BAG IV SCH (00:57)
[2025-05-29] MEDS: HEPARIN SOD (PORCINE) 1000 UNIT/ML IV ONE (00:57)
[2025-05-29 05:02] LABS: Hematocrit (blood only) 34.3 % (42.0-52.0); Hemoglobin 11.3 g/dl (14.0-18.0); Mean Corpuscular Hemoglobin 29.9 pg (25.0-34.0); Mean Corpuscular Volume 90.7 fL (80.0-100.0); Platelet Count 192 K/uL (130-400); RDW Standard Deviation 50.7 fL (36.4-46.3); Red Blood Count 3.78 M/uL (4.70-6.10); White Blood Count 7.64 K/ul (4.8-10.8)
[2025-05-29 05:18] LABS: Alanine Aminotransferase 23.0 U/L (7-52); Alkaline Phosphatase 53.0 U/L (34-104); Anion Gap 9.0 (3-11); Bilirubin,Total 0.8 mg/dl (0.2-1.0); Blood Urea Nitrogen 22.0 mg/dl (6-23); Calcium 7.6 mg/dl (8.6-10.3); Carbon Dioxide 21.0 mmol/L (21-32); Chloride 103.0 mmol/L (98-107); Creatinine Clr Calc Pharmacy 62.2 ml/min; Glucose 184.0 mg/dl (70-99(Fasting)); Magnesium 2.5 mg/dl (1.7-2.4); Potassium 4.4 mmol/L (3.5-5.1); Sodium 133.0 mmol/L (136-145); Total Protein 5.9 gm/dl (6.0-8.3)
[2025-05-29 05:26] LABS: INR 1.3 (0.9-1.1); Prothrombin Time 14.0 Seconds (9.0-12.0)
[2025-05-29 07:25] LABS: Hemoglobin A1C 7.2 % (4.5-5.6)
--- NOTE | 2025-05-29 07:35 | Critical Care Progress Note ---
Date of Service May 29, 2025 Assessment & Plan (1) Anaplasmosis: (2) Septic shock: (3) Acute kidney injury: (4) Dehydration fever: (5) Lactic acidosis: (6) Acute metabolic encephalopathy: Plan Reason Critically Ill: 1. Acute metabolic encephalopathy i/s/o fever and hypotension, resolved 2. Anaplasmosis 3. Septic shock 2/2 #2 4. Acute kidney injury, prerenal 5. HAGMA 2/2 lactic acidosis 6. Atrial flutter with variable AV block 7. ILD Neuro - CAM ICU: Negative RASS GOAL 0 APAP PRN pain/fever Sleep hygiene Cardiac - -- Septic shock Likely from anaplasmosis Continue doxycycline Continue vasopressor support to keep MAP greater than 65 -- New onset A-fib [id number] 2 Continue with heparin drip Follow-up 2D echo Respiratory - CTA chest 05/28/2025 personally reviewed: Motion degraded study Minimally increased reticular marking appreciated on the periphery especially in the right upper lobe followed by bilateral lower lobe Dependent atelectasis bilateral lower lobes No significant mediastinal lymphadenopathy --ILD Subtle changes are appreciated on the CAT scan of the chest No personal or family history of any autoimmune disease like lupus, sarcoid, Sjogren's, rheumatoid No Raynaud's No family history of pulmonary disease Autoimmune workup will be ordered for the patient Would recommend outpatient HRCT as well as pulmonary function test GI - No acute concerns Hepatic steatosis noted on CT AP Diet: Advance as tolerated SUP: N/A Bowel regimen: Miralax RENAL/LYTES - -- JENNIFER --> improving Monitor BUN/creatinine Avoid nephrotoxic medications Strict ins and outs ENDO - -- Diabetes type 2 HbA1c 7.0 Continue with ICU hypoglycemia protocol HEME - -- Anaplasmosis Anaplasmosis smear +, awaiting infected neutrophil count/% Continue doxycycline Monitor H&H ID - -- Anaplasmosis, no other clear source of infection on work-up Continue Doxycycline, consider D/C Zosyn Respiratory BioFire negative for everything on 05/28/2025 --Prophylaxis VTE: Heparin drip GI: None Lines: Peripheral Diet: Cardiac Plan: In/out: +3.8 L, urine output 1225 Continue with doxycycline for at least 10 days Try to wean off vasopressors while keeping the MAP greater than 65 Will give Plasma-Lyte 100 mL an hour for half a liter and reassess Autoimmune workup to be done tomorrow for underlying ILD He saturating well on room air, does not need any intervention right now Outpatient PFT and HRCT I have personally spent 38 minutes of critical care time in the direct management of this patient. This is a life/limb threatening event. This includes time spent evaluating patient, direct bedside care, chart review, placing orders, interpretation of diagnostic studies, discussion with consultants, patient, and family members, as well as other required patient management activities. This time is exclusive of all separately billable procedures, and teaching time and separate from and in addition to any other critical care service time. Thank you for allowing us to participate in the care of this patient. Please refer to my attending physician's documentation for any further recommendations. Admission and Anticipated Discharge Date Admission Date: May 28, 2025 Subjective Patient seen and examined at bedside. No acute distress, no adverse events overnight He was on 0.03 of Levophed with MAP in the high 60s Stated that he is feeling better compared to yesterday No nausea or vomiting Has finished his breakfast without any issues Denied any headache or blurry vision Review of Systems 2 Review of Systems: All systems reviewed & are unremarkable except as noted in Subjective Physical Exam 2 Physical Exam: Constitutional: No acute distress HEENT: EOMI, PERRLA Respiratory system: Good air entry bilaterally, no wheeze, no rhonchi, minimal crackles bilaterally, normal Velcro CVS: S1-S2 positive, no murmurs or gallops, irregular Abdomen: Soft, nontender, nondistended, positive bowel sounds x4 Extremities: +2 pulses bilaterally radialis/ dorsalis pedis, no cyanosis, no edema Neuro: Awake alert oriented x3 Psych: Normal mood and affect G/U: No Mccormick Skin: no rashes, warm and dry Lymphatic: no cervical or axillary lymphadenopathy Results & Data Results & Data Vital Signs (Past 12 Hours) Vital Signs Temp Pulse Pulse Resp BP BP Pulse Ox 05/29/25 05:51 82 18 102/61 95 05/29/25 04:57 111 H 15 102/61 93 05/29/25 04:00 37.4 C 114 H 16 101/63 92 05/29/25 03:00 122 H 22 87/58 L 93 05/29/25 02:00 124 H 22 100/64 91 05/29/25 01:00 107 H 21 99/57 L 94 05/29/25 00:36 121 H 26 H 97/53 L 94 05/29/25 00:27 37.4 C 100 H 16 95/62 L 95 05/29/25 00:06 95 H 20 117/65 93 05/28/25 23:47 104 H 05/28/25 23:24 85 92/49 L 92 05/28/25 23:15 84 90/53 L 93 05/28/25 23:09 93 H 16 91/59 L 94 05/28/25 22:46 37.8 C H 88 24 89/59 L 95 05/28/25 22:36 100 H 24 90/57 L 94 05/28/25 22:35 90/57 L 05/28/25 22:25 82/53 L 05/28/25 22:21 80/45 L 05/28/25 22:06 97 H 29 H 94 05/28/25 22:05 112/76 05/28/25 22:05 112/76 05/28/25 22:03 105 H 28 H 94 05/28/25 22:00 120/78 05/28/25 22:00 120/78 05/28/25 21:54 107 H 33 H 93 05/28/25 21:50 103/83 05/28/25 21:50 103/83 05/28/25 21:50 103/83 05/28/25 21:40 110/86 05/28/25 21:40 110/86 05/28/25 21:35 136/86 05/28/25 21:20 89/58 L 05/28/25 21:15 110 H 29 H 93/61 L 95 05/28/25 21:10 90/57 L 05/28/25 21:05 89/55 L 05/28/25 21:00 107 H 28 H 87/57 L 95 05/28/25 20:56 103 H 98/61 L 05/28/25 20:55 98/61 L 05/28/25 20:50 107 H 35 H 76/58 L 95 05/28/25 20:50 104 H 30 H 76/58 L 96 05/28/25 20:45 108 H 34 H 88/57 L 95 05/28/25 20:40 106 H 33 H 85/59 L 94 05/28/25 20:35 77/49 L 05/28/25 20:35 38.9 C H 105 H 30 H 77/49 L 94 05/28/25 20:30 109 H 33 H 76/59 L 95 05/28/25 20:24 107 H 36 H 95 05/28/25 20:22 75/46 L 05/28/25 20:06 105 H 31 H 69/42 L 93 05/28/25 20:00 70/43 L 05/28/25 19:58 81/43 L O2 Del Method O2 Flow Rate 05/29/25 05:51 Room Air 0 05/29/25 04:57 Room Air 05/29/25 04:00 Room Air 05/29/25 03:00 Room Air 05/29/25 02:00 Room Air 05/29/25 01:00 Room Air 05/29/25 00:36 Room Air 05/29/25 00:27 Room Air 05/29/25 00:06 Room Air 05/28/25 23:47 05/28/25 23:24 Room Air 05/28/25 23:15 Room Air 05/28/25 23:09 Room Air 05/28/25 22:46 Room Air 05/28/25 22:36 Room Air 05/28/25 22:35 05/28/25 22:25 05/28/25 22:21 05/28/25 22:06 05/28/25 22:05 05/28/25 22:05 05/28/25 22:03 05/28/25 22:00 05/28/25 22:00 05/28/25 21:54 05/28/25 21:50 05/28/25 21:50 05/28/25 21:50 05/28/25 21:40 05/28/25 21:40 05/28/25 21:35 05/28/25 21:20 05/28/25 21:15 05/28/25 21:10 05/28/25 21:05 05/28/25 21:00 05/28/25 20:56 05/28/25 20:55 05/28/25 20:50 05/28/25 20:50 Room Air 05/28/25 20:45 05/28/25 20:40 05/28/25 20:35 05/28/25 20:35 Room Air 05/28/25 20:30 05/28/25 20:24 05/28/25 20:22 05/28/25 20:06 05/28/25 20:00 05/28/25 19:58 Laboratory Results 05/29/25 04:27 05/29/25 04:27 Coding Level of Care Code 29807 CRITICAL CARE 1ST 30-74M Diagnoses Anaplasmosis A77.49 Septic shock A41.9; R65.21 Acute kidney injury N17.9 Dehydration fever R50.9 Lactic acidosis E87.20 Acute metabolic encephalopathy G93.41
[2025-05-29 07:36] LABS: ANTI-Xa, UFH(UnfractionatedHep 0.92 IU/ml (0.3-0.7)
[2025-05-29] MEDS ORDERED: Nursing to Pharmacy Communication SCH (07:45)
[2025-05-29] MEDS: DOXYCYCLINE HYCLATE 100 MG in DEXTROSE 5% MINI-B 100 ML IV SCH (08:11)
[2025-05-29] MEDS: ATORVASTATIN 40 MG TAB PO SCH (08:12)
[2025-05-29] MEDS: LANTUS PER UNIT CHARGE SQ SCH (08:12)
[2025-05-29] MEDS: PLASMA-LYTE A 1,000 ML IV SCH (10:10)
--- NOTE | 2025-05-29 10:46 | Hospitalist Progress Note ---
Date of Service May 29, 2025 Assessment & Plan (1) Septic shock: (2) Anaplasmosis: (3) Diabetes mellitus: (4) Hyperlipidemia: Plan 75yo male with history of DM, Hyperlipidemia presenting with two weeks of generalized illness. Patient with sepsis, present on admission with fever, tachycardia, hypotension unresponsive to IV crystalloid resuscitation. 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 -Now resolving -Patient received his sepsis fluid amount of crystalloid at 30mL/kg -Still on pressors, wean per Sustainability Specialist -Follow cultures sent from the ER -Doxycycline 100mg IV BID #High anion gap metabolic acidosis -Now resolved - On admission, Gap=14. Elevated Lactate on arrival at 4.7 which has normalized to 1 following IVF. - Likely multifactorial, elevated lactate, likely elevated Cr although no baseline value to compare. -Continue IVF, treatment of underlying infection -Repeat chemistry in AM #Hyperlipidemia -Continue Atorvastatin 40mg PO daily #Diabetes - patient on Jardiance -Lantus 5u BID -ISS -Goal blood sugar 110 - 180 #Hypomagnesemia - Mg=0.9 -5gm IV magnesium ordered -Repeat level in AM with continued repletion as needed #Hypophosphatemia -KPhos 21mmol with repeat labs in AM, continue repletion as needed #Diffuse pulmonary fibrosis noted on CTA chest. Patient with no known diagnosis of such. Denies complaint of SOB, cough or wheeze -Appreciate Pulm/CC input regarding recommendations on future workup and management Admission and Anticipated Discharge Date Admission Date: May 28, 2025 Subjective patient seen and examined, feels a lot better today Review of Systems Review of Systems: All systems reviewed are negative, apart from the ones contained in the history. Physical Exam Physical Exam: The patient is awake, alert and oriented 3, well developed and well nourished, normocephalic and atraumatic, lying in bed and in no acute distress. HEENT--PERRL, EOMI, mucous membranes and oropharynx mildly dry Neck--supple. No JVD. No bruits. Thyroid normal, trachea midline, no adenopathy. Heart--normal S1 and S2. No murmurs, rubs or gallops. Lungs--clear bilaterally, no respiratory distress, no accessory muscle use. Abdomen--normal bowel sounds and soft. Extremities--no cyanosis or clubbing. No edema. Dermatologic--normal skin turgor, normal color, no abnormal lymph nodes, no rash. Neurologic--cranial nerves II through XII grossly intact. Rheumatologic--normal range of motion. Psychiatric--normal affect. Results & Data Results & Data Vital Signs (Past 12 Hours) Vital Signs Temp Pulse Pulse Resp BP BP Pulse Ox 05/29/25 10:30 111/61 05/29/25 10:30 73 23 96 05/29/25 10:03 92 H 24 95 05/29/25 10:02 90/53 L 05/29/25 10:02 90/53 L 05/29/25 09:48 78 31 H 95 05/29/25 09:33 70 25 H 94 05/29/25 09:30 93/49 L 05/29/25 09:18 76 22 94 05/29/25 09:06 87 22 92 05/29/25 08:30 101/56 L 05/29/25 08:30 101/56 L 05/29/25 08:30 105 H 22 93 05/29/25 08:03 91 H 22 95 05/29/25 08:01 98/59 L 05/29/25 08:01 98/59 L 05/29/25 08:00 05/29/25 08:00 70 05/29/25 08:00 05/29/25 07:57 93 H 19 93 05/29/25 07:33 126 H 20 94 05/29/25 07:12 82 15 91 05/29/25 07:00 98.6 F 94 H 20 94 05/29/25 05:51 82 18 102/61 95 05/29/25 04:57 111 H 15 102/61 93 05/29/25 04:00 99.3 F 114 H 16 101/63 92 05/29/25 03:00 122 H 22 87/58 L 93 05/29/25 02:00 124 H 22 100/64 91 05/29/25 01:00 107 H 21 99/57 L 94 05/29/25 00:36 121 H 26 H 97/53 L 94 05/29/25 00:27 99.3 F 100 H 16 95/62 L 95 05/29/25 00:06 95 H 20 117/65 93 05/28/25 23:47 104 H 05/28/25 23:24 85 92/49 L 92 05/28/25 23:15 84 90/53 L 93 05/28/25 23:09 93 H 16 91/59 L 94 05/28/25 22:46 100.0 F H 88 24 89/59 L 95 O2 Del Method O2 Flow Rate 05/29/25 10:30 05/29/25 10:30 05/29/25 10:03 05/29/25 10:02 05/29/25 10:02 05/29/25 09:48 05/29/25 09:33 05/29/25 09:30 05/29/25 09:18 05/29/25 09:06 05/29/25 08:30 05/29/25 08:30 05/29/25 08:30 05/29/25 08:03 05/29/25 08:01 05/29/25 08:01 05/29/25 08:00 Room Air 05/29/25 08:00 05/29/25 08:00 Room Air 05/29/25 07:57 05/29/25 07:33 05/29/25 07:12 05/29/25 07:00 Room Air 05/29/25 05:51 Room Air 0 05/29/25 04:57 Room Air 05/29/25 04:00 Room Air 05/29/25 03:00 Room Air 05/29/25 02:00 Room Air 05/29/25 01:00 Room Air 05/29/25 00:36 Room Air 05/29/25 00:27 Room Air 05/29/25 00:06 Room Air 05/28/25 23:47 05/28/25 23:24 Room Air 05/28/25 23:15 Room Air 05/28/25 23:09 Room Air 05/28/25 22:46 Room Air PG Care Time/CCT Total # of Minutes Spent Total Time Spent with Patient: Total time spent is greater than 50% in coordination of care (as documented) at patient's floor/unit and/or counseling patient: Coding Level of Care Code 90875 SUB INP/OBS CARE 2/35MIN Diagnoses Septic shock A41.9; R65.21 Anaplasmosis A77.49 Diabetes mellitus E11.9 Hyperlipidemia E78.5 Time Spent (min) 35
--- NOTE | 2025-05-29 11:38 | XCELERA ---
[id number] \\[id number]
--- NOTE | 2025-05-29 11:40 | Cardiology Consultation ---
Date of Consultation May 29, 2025 Assessment & Plan (1) Atrial flutter: (2) Septic shock: (3) Anaplasmosis: Plan ASSESSMENT/PLAN: 1. Atrial flutter: ECG demonstrated atrial flutter. Repeat ECG as telemetry appears more consistent currently with atrial fibrillation. Diagnosis discussed with him in detail. Fortunately, adequately rate controlled without rate controlling therapy. Asymptomatic. Onset unknown, but may be related to anaplasmosis/septic shock. Agree with anticoagulation therapy if no contraindication. May spontaneously convert with improvement of underlying infection. If not, could consider cardioverting in the future, but not necessary urgently. Could also consider ablation in the future if a recurrent issue. Monitor CBC while anticoagulating. 2. Anaplasmosis/septic shock: As per primary hospitalist and critical care service. 3. Pulmonary fibrosis: As per hospitalist/critical care team. 4. Disposition: [facility] cardiology will continue to follow this weekend. [facility] cardiology will resume his care on 05/31/2025. Patient care communicated with critical care team, Dr. Reno. Thank you for allowing me to participate in the care of your patient. Please call for any other questions or concerns. Sincerely, Gabo Jordan M.D. History of Present Illness Reason for Consultation: Atrial flutter Requesting Physician: Gurdeep Attending Physician: Arlin Tolentino MD History of Present Illness Mr. Duncan is a very pleasant 75-year-old gentleman with a history significant for type 2 diabetes and dyslipidemia. His primary entry table operator is Dr. Vo of [facility]. He was hospitalized on 05/28/2025 and diagnosed with septic shock with anaplasmosis and newly discovered atrial flutter. He had 2 weeks worth of chills and felt exhausted. On the day of presentation, he also had confusion. He was found to be hypotensive initially with systolic blood pressure as low as 69 but predominantly in the 70s to 80s mmHg. He was placed on pressor support in the form of norepinephrine and also received IV fluids. He was found to have anaplasmosis. Initial ECG demonstrated atrial flutter. He denied palpitations. He does not recall a history of atrial flutter or atrial fibrillation. He was placed on anticoagulation therapy by the critical care team. He has been seen by [facility] cardiology due to a family history of cardiomyopathy (he believes hypertrophic cardiomyopathy). He states that he had genetic testing done which he reports as unremarkable. He has lost approximately 45 pounds intentionally over the past 2.5 years by partaking in a healthier diet. He describes himself as "fairly active." He walks and also does outside chores. He notes improvement from presentation in his overall presenting symptoms. He continues to deny palpitations. He denies chest pain, shortness of breath, syncope, near syncope, melena, hematochezia, hematuria, or other bleeding. He denies edema. He denies a history of stroke or TIA. Review of systems: As above. Family history: No known premature CAD. Hypertrophic cardiomyopathy. Social history: Denies smoking. Rare alcohol. No drug abuse. Lives at home with his and adult daughter. 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 He was unaccompanied in the ICU. Allergies Allergy/AdvReac Type Severity Reaction Status Date / Time No Known Allergies Allergy Verified 05/28/25 20:48 Home Medications Medication Instructions Recorded Confirmed Type atorvastatin 40 mg tablet 40 mg PO DAILY 05/28/25 05/28/25 History empagliflozin 25 mg tablet 25 mg PO DAILY 05/28/25 05/28/25 History (Jardiance) lisinopril 5 mg tablet 5 mg PO DAILY 05/28/25 05/28/25 History metformin 500 mg tablet,extended 1,000 mg PO BID 05/28/25 05/28/25 History release 24 hr Problem List (Updated 05/29/25 @ 17:23 by Chaparro Jordan MD) Atrial flutter Hyperlipidemia Acute metabolic encephalopathy Lactic acidosis Dehydration fever Acute kidney injury Hyperlipidemia associated with type 2 diabetes mellitus Diabetes mellitus Septic shock Anaplasmosis Patient History Social History Smoking Status: Former smoker Do You Dip or Chew Tobacco: No; Hx Alcohol Use: Yes Hx Substance Use: No Preferred Language: Georgian Communication Ability: Effective Beadworker Required: No Beliefs That Will Affect Care: None Current Living Situation: Spouse Feels Safe at Home: Yes Safety Concerns: Feels Safe At This Time Assistive Devices: Glasses Physical Exam Physical Exam: Gen.: No acute distress. Alert. HEENT: Anicteric sclera. Neck: No JVD. No bruits. Normal carotid upstrokes bilaterally. Cardiac: Irregularly irregular. Normal S1-S2. No murmurs, rubs, or gallops. Pulmonary: Clear to auscultation bilaterally without wheezes, rales, or rhonchi. Abdomen: Soft, nontender, nondistended, with normoactive bowel sounds. No bruits noted. Extremities: 2+ radial pulses bilaterally. 2+ posterior tibialis pulses bilaterally. No edema or cyanosis. Results & Data Vital Signs (Past 12 Hours) Vital Signs Temp Pulse Pulse Resp BP BP Pulse Ox 05/29/25 10:30 111/61 05/29/25 10:30 73 23 96 05/29/25 10:03 92 H 24 95 05/29/25 10:02 90/53 L 05/29/25 10:02 90/53 L 05/29/25 09:48 78 31 H 95 05/29/25 09:33 70 25 H 94 05/29/25 09:30 93/49 L 05/29/25 09:18 76 22 94 05/29/25 09:06 87 22 92 05/29/25 08:30 101/56 L 05/29/25 08:30 101/56 L 05/29/25 08:30 105 H 22 93 05/29/25 08:03 91 H 22 95 05/29/25 08:01 98/59 L 05/29/25 08:01 98/59 L 05/29/25 08:00 05/29/25 08:00 70 05/29/25 08:00 05/29/25 07:57 93 H 19 93 05/29/25 07:33 126 H 20 94 05/29/25 07:12 82 15 91 05/29/25 07:00 37.0 C 94 H 20 94 05/29/25 05:51 82 18 102/61 95 05/29/25 04:57 111 H 15 102/61 93 05/29/25 04:00 37.4 C 114 H 16 101/63 92 05/29/25 03:00 122 H 22 87/58 L 93 05/29/25 02:00 124 H 22 100/64 91 05/29/25 01:00 107 H 21 99/57 L 94 05/29/25 00:36 121 H 26 H 97/53 L 94 05/29/25 00:27 37.4 C 100 H 16 95/62 L 95 05/29/25 00:06 95 H 20 117/65 93 05/28/25 23:47 104 H O2 Del Method O2 Flow Rate 05/29/25 10:30 05/29/25 10:30 05/29/25 10:03 05/29/25 10:02 05/29/25 10:02 05/29/25 09:48 05/29/25 09:33 05/29/25 09:30 05/29/25 09:18 05/29/25 09:06 05/29/25 08:30 05/29/25 08:30 05/29/25 08:30 05/29/25 08:03 05/29/25 08:01 05/29/25 08:01 05/29/25 08:00 Room Air 05/29/25 08:00 05/29/25 08:00 Room Air 05/29/25 07:57 05/29/25 07:33 05/29/25 07:12 05/29/25 07:00 Room Air 05/29/25 05:51 Room Air 0 05/29/25 04:57 Room Air 05/29/25 04:00 Room Air 05/29/25 03:00 Room Air 05/29/25 02:00 Room Air 05/29/25 01:00 Room Air 05/29/25 00:36 Room Air 05/29/25 00:27 Room Air 05/29/25 00:06 Room Air 05/28/25 23:47 Laboratory Results Laboratory Results - last 24 hr 05/28/25 05/28/25 05/28/25 19:05 19:20 21:31 WBC 6.36 RBC 4.32 L Hgb 13.0 L Hct 39.1 L MCV 90.5 MCH 30.1 MCHC 33.2 RDW Std Deviation 50.2 H RDW Coeff of Noemy 15.1 H Plt Count 206 MPV 10.1 Immature Gran % (Auto) 0.5 Neut % (Auto) 80.3 Lymph % (Auto) 13.8 Meeker % (Auto) 5.2 Eos % (Auto) 0.0 Baso % (Auto) 0.2 Neut # (Auto) 5.11 Lymph # (Auto) 0.88 L Meeker # (Auto) 0.33 Eos # (Auto) 0.00 Baso # (Auto) 0.01 Immature Gran # (Auto) 0.03 Peripher Smr Path Cons Pending PT 13.3 H INR 1.2 H Heparin Anti-Xa, Unfract Sodium 131 L Potassium 4.5 Chloride 97 L Carbon Dioxide 20 L Anion Gap 14 H BUN 28 H Creatinine 1.64 H Est Cr Clr Drug Dosing Not Reportable eGFR 43.62 BUN/Creatinine Ratio 17.1 Glucose 267 H POC Glucose Estimat Average Glucose Hemoglobin A1c Lactate 4.7 H* 1.0 Calcium 8.7 Phosphorus 1.3 L* Magnesium 0.9 L* Total Bilirubin 1.2 H Direct Bilirubin AST 31 ALT 28 Alkaline Phosphatase 63 Troponin I High Sens 27.4 H 14.4 D Total Protein 7.2 Albumin 3.3 L Globulin 3.9 Albumin/Globulin Ratio 0.8 L Lipase 20 Procalcitonin 1.08 H Random Cortisol 45.14 Urine Color Urine Appearance Urine pH Ur Specific Cobb Urine Protein Urine Glucose (UA) Urine Ketones Urine Blood Urine Nitrite Urine Bilirubin Urine Urobilinogen Ur Leukocyte Esterase Urine WBC (Auto) Urine RBC (Auto) U Hyaline Cast (Auto) U Epithel Cells (Auto) Urine Bacteria (Auto) Urine Comment Nasal Screen MRSA (PCR) Adenovirus (PCR) Not Detected Anaplasma Smear See Comment A A. phagocytophilum DNA Pending Anaplasma Comment Pending Babesia microti DNA PCR Pending B. pertussis DNA (PCR) Not Detected B.parapertussis DNA PCR Not Detected Lyme Disease Screen Negative C. pneumoniae DNA (PCR) Not Detected Coronavirus OC43 (PCR) Not Detected Coronavirus HKU1 (PCR) Not Detected Coronavirus 229E (PCR) Not Detected SARS-CoV-2 (PCR) Not Detected Coronavirus NL63 (PCR) Not Detected Hepatitis C Ab Screen Human Metapneumovir PCR Not Detected Influenza Type A (PCR) Not Detected Influenza Type B (PCR) Not Detected M. pneumoniae (PCR) Not Detected Parainfluenza 1 (PCR) Not Detected Parainfluenza 2 (PCR) Not Detected Parainfluenza 3 (PCR) Not Detected Parainfluenza 4 (PCR) Not Detected RSV (PCR) Not Detected Entero/Rhino (PCR) Not Detected 05/28/25 05/28/25 05/28/25 23:54 23:59 Unknown WBC RBC Hgb Hct MCV MCH MCHC RDW Std Deviation RDW Coeff of Noemy Plt Count MPV Immature Gran % (Auto) Neut % (Auto) Lymph % (Auto) Meeker % (Auto) Eos % (Auto) Baso % (Auto) Neut # (Auto) Lymph # (Auto) Meeker # (Auto) Eos # (Auto) Baso # (Auto) Immature Gran # (Auto) Peripher Smr Path Cons PT INR Heparin Anti-Xa, Unfract Sodium Potassium Chloride Carbon Dioxide Anion Gap BUN Creatinine Est Cr Clr Drug Dosing eGFR BUN/Creatinine Ratio Glucose POC Glucose 181 H Estimat Average Glucose Hemoglobin A1c Lactate Calcium Phosphorus Magnesium Total Bilirubin Direct Bilirubin AST ALT Alkaline Phosphatase Troponin I High Sens Total Protein Albumin Globulin Albumin/Globulin Ratio Lipase Procalcitonin Random Cortisol Urine Color Yellow Urine Appearance Clear Urine pH 5.0 Ur Specific Cobb > 1.045 H Urine Protein 1+ H Urine Glucose (UA) 3+ H Urine Ketones Trace H Urine Blood Negative Urine Nitrite Negative Urine Bilirubin Negative Urine Urobilinogen Negative Ur Leukocyte Esterase Negative Urine WBC (Auto) 0-5 Urine RBC (Auto) 0-2 U Hyaline Cast (Auto) 3-5 H U Epithel Cells (Auto) 3-5 H Urine Bacteria (Auto) None Seen Urine Comment Nasal Screen MRSA (PCR) Negative Adenovirus (PCR) Anaplasma Smear A. phagocytophilum DNA Anaplasma Comment Babesia microti DNA PCR B. pertussis DNA (PCR) B.parapertussis DNA PCR Lyme Disease Screen C. pneumoniae DNA (PCR) Coronavirus OC43 (PCR) Coronavirus HKU1 (PCR) Coronavirus 229E (PCR) SARS-CoV-2 (PCR) Coronavirus NL63 (PCR) Hepatitis C Ab Screen Human Metapneumovir PCR Influenza Type A (PCR) Influenza Type B (PCR) M. pneumoniae (PCR) Parainfluenza 1 (PCR) Parainfluenza 2 (PCR) Parainfluenza 3 (PCR) Parainfluenza 4 (PCR) RSV (PCR) Entero/Rhino (PCR) 05/29/25 05/29/25 05/29/25 04:27 06:48 07:17 WBC 7.64 RBC 3.78 L Hgb 11.3 L Hct 34.3 L MCV 90.7 MCH 29.9 MCHC 32.9 RDW Std Deviation 50.7 H RDW Coeff of Noemy 15.5 H Plt Count 192 MPV 9.9 Immature Gran % (Auto) Neut % (Auto) Lymph % (Auto) Meeker % (Auto) Eos % (Auto) Baso % (Auto) Neut # (Auto) Lymph # (Auto) Meeker # (Auto) Eos # (Auto) Baso # (Auto) Immature Gran # (Auto) Peripher Smr Path Cons PT 14.0 H INR 1.3 H Heparin Anti-Xa, Unfract 0.92 H* Sodium 133 L Potassium 4.4 Chloride 103 Carbon Dioxide 21 Anion Gap 9 BUN 22 Creatinine 1.21 D Est Cr Clr Drug Dosing 62.2 eGFR 62.83 BUN/Creatinine Ratio 18.2 Glucose 184 H POC Glucose 196 H Estimat Average Glucose 160 Hemoglobin A1c 7.2 H Lactate Calcium 7.6 L Phosphorus Magnesium 2.5 H 2.8 H Total Bilirubin 0.8 Direct Bilirubin 0.3 H AST 27 ALT 23 Alkaline Phosphatase 53 Troponin I High Sens Total Protein 5.9 L Albumin 2.7 L Globulin Albumin/Globulin Ratio Lipase Procalcitonin Random Cortisol Urine Color Urine Appearance Urine pH Ur Specific Cobb Urine Protein Urine Glucose (UA) Urine Ketones Urine Blood Urine Nitrite Urine Bilirubin Urine Urobilinogen Ur Leukocyte Esterase Urine WBC (Auto) Urine RBC (Auto) U Hyaline Cast (Auto) U Epithel Cells (Auto) Urine Bacteria (Auto) Urine Comment Nasal Screen MRSA (PCR) Adenovirus (PCR) Anaplasma Smear A. phagocytophilum DNA Anaplasma Comment Babesia microti DNA PCR B. pertussis DNA (PCR) B.parapertussis DNA PCR Lyme Disease Screen C. pneumoniae DNA (PCR) Coronavirus OC43 (PCR) Coronavirus HKU1 (PCR) Coronavirus 229E (PCR) SARS-CoV-2 (PCR) Coronavirus NL63 (PCR) Hepatitis C Ab Screen Negative Human Metapneumovir PCR Influenza Type A (PCR) Influenza Type B (PCR) M. pneumoniae (PCR) Parainfluenza 1 (PCR) Parainfluenza 2 (PCR) Parainfluenza 3 (PCR) Parainfluenza 4 (PCR) RSV (PCR) Entero/Rhino (PCR) 05/29/25 05/29/25 08:43 10:51 WBC RBC Hgb Hct MCV MCH MCHC RDW Std Deviation RDW Coeff of Noemy Plt Count MPV Immature Gran % (Auto) Neut % (Auto) Lymph % (Auto) Meeker % (Auto) Eos % (Auto) Baso % (Auto) Neut # (Auto) Lymph # (Auto) Meeker # (Auto) Eos # (Auto) Baso # (Auto) Immature Gran # (Auto) Peripher Smr Path Cons PT INR Heparin Anti-Xa, Unfract Sodium Potassium Chloride Carbon Dioxide Anion Gap BUN Creatinine Est Cr Clr Drug Dosing eGFR BUN/Creatinine Ratio Glucose POC Glucose 174 H Estimat Average Glucose Hemoglobin A1c Lactate Calcium Phosphorus 3.9 D Magnesium Total Bilirubin Direct Bilirubin AST ALT Alkaline Phosphatase Troponin I High Sens Total Protein Albumin Globulin Albumin/Globulin Ratio Lipase Procalcitonin Random Cortisol Urine Color Urine Appearance Urine pH Ur Specific Cobb Urine Protein Urine Glucose (UA) Urine Ketones Urine Blood Urine Nitrite Urine Bilirubin Urine Urobilinogen Ur Leukocyte Esterase Urine WBC (Auto) Urine RBC (Auto) U Hyaline Cast (Auto) U Epithel Cells (Auto) Urine Bacteria (Auto) Urine Comment Nasal Screen MRSA (PCR) Adenovirus (PCR) Anaplasma Smear A. phagocytophilum DNA Anaplasma Comment Babesia microti DNA PCR B. pertussis DNA (PCR) B.parapertussis DNA PCR Lyme Disease Screen C. pneumoniae DNA (PCR) Coronavirus OC43 (PCR) Coronavirus HKU1 (PCR) Coronavirus 229E (PCR) SARS-CoV-2 (PCR) Coronavirus NL63 (PCR) Hepatitis C Ab Screen Human Metapneumovir PCR Influenza Type A (PCR) Influenza Type B (PCR) M. pneumoniae (PCR) Parainfluenza 1 (PCR) Parainfluenza 2 (PCR) Parainfluenza 3 (PCR) Parainfluenza 4 (PCR) RSV (PCR) Entero/Rhino (PCR) Diagnostic Findings ECHO 05/29/25: 1. Normal left ventricular size and systolic function. EF 60-65%. No regional wall motion abnormalities. Moderate concentric left ventricular hypertrophy. 2. Mildly dilated right ventricle with normal systolic function. 3. Sclerotic aortic valve with trace regurgitation. 4. Normal estimated right ventricular systolic pressure. 5. Technically difficult study, enhanced with IV Definity. 6. No prior study available for comparison. Labs reviewed and notable for mild hyponatremia, normal potassium, improved renal function from presentation, elevated A1c, initially profound hypomagnesemia (0.9) and now hypermagnesemia. Normal transaminase levels, mild anemia. Initial high-sensitivity troponin slightly elevated at 27 but has since normalized. ECG personally reviewed from 05/28/2025: Atrial flutter 115 bpm. RBBB. Possible anterior infarct. History and physical report reviewed. Critical care consult reviewed. Head CT 05/28/2025: No acute findings per radiology. CTA chest 05/28/2025: No large central PE. Diffuse pulmonary fibrosis. Hepatic steatosis. Hepatomegaly. Exam limited secondary to patient respiratory motion per radiology. CT abdomen/pelvis 05/28/2025: No acute findings per radiology. Telemetry personally reviewed: Atrial fibrillation with reasonable heart rate control. No significant pauses. Medications Administered Current Inpatient Medications Acetaminophen (Acetaminophen 325 Mg Tab) 650 mg PO Q4H PRN PRN Reason: Pain or Fever Stop: 06/27/25 23:46 Atorvastatin Calcium (Atorvastatin 40 Mg Tab) 40 mg PO DAILY JOEY Stop: 06/28/25 08:59 Last Admin: 05/29/25 08:12 Dose: 40 mg Dextrose (Dextrose 50% 50 Ml Syringe) 25 - 50 ml IV UD PRN; Protocol PRN Reason: Hypoglycemia Protocol Stop: 06/27/25 23:46 Docusate Sodium (Docusate Sodium 100 Mg Cap) 100 mg PO BID PRN PRN Reason: Constipation Stop: 06/27/25 23:46 Glucagon (Glucagon For Inj 1 Mg Vial) 1 mg SQ UD PRN; Protocol PRN Reason: Hypoglycemia Protocol Stop: 06/27/25 23:46 Glucose (Glucose 40% Gel 15 Gm Tube) 15 - 30 gm PO UD PRN; Protocol PRN Reason: Hypoglycemia Protocol Stop: 06/27/25 23:46 Glucose (Glucose 10 Tab/Tube) 4 - 8 tab PO UD PRN; Protocol PRN Reason: Hypoglycemia Protocol Stop: 06/27/25 23:46 Norepinephrine Bitartrate (Levophed/D5w) 4 mg in 250 mls @ 13.061 mls/hr IV .Q19H9M JOEY; Protocol Stop: 06/27/25 20:29 Last Admin: 05/29/25 10:11 Dose: Not Given Doxycycline Hyclate 100 mg/ (Dextrose) 100 mls @ 50 mls/hr IV Q12H JOEY Stop: 06/12/25 08:59 Last Infusion: 05/29/25 10:12 Dose: Infused Heparin Sodium/Dextrose (Heparin 64707 Unit/500 Ml D5w) 25,000 units in 500 mls @ 27 mls/hr IV .[id number] [facility]; Protocol Stop: 06/28/25 00:44 Last Titration: 05/29/25 07:42 Dose: 1,350 units/hr, 27 mls/hr Parenteral Electrolytes (Plasma-Lyte A Ph 7.4) 1,000 mls @ 100 mls/hr IV .Q10H [facility] Stop: 05/29/25 14:14 Last Admin: 05/29/25 10:10 Dose: 100 mls/hr Insulin Aspart (Insulin Aspart Per Unit Charge) 0 units SC ACHS [facility] Stop: 06/28/25 00:00 Last Admin: 05/29/25 08:11 Dose: 4 units Insulin Glargine (Lantus Per Unit Charge) 5 units SQ BID [facility] Stop: 06/28/25 08:59 Last Admin: 05/29/25 08:12 Dose: 5 units Miscellaneous (Carbohydrates For Hypoglycemia ) 15 - 30 gm PO UD PRN PRN Reason: Hypoglycemia Protocol Stop: 06/27/25 23:46 Ondansetron HCl (Ondansetron Inj 2 Mg/Ml 2 Ml Vial) 4 mg IV Q6H PRN PRN Reason: Nausea And Vomiting Stop: 06/27/25 23:46 PG Care Time/CCT Total # of Minutes Spent Total Time Spent with Patient: Total time spent is greater than 50% in coordination of care (as documented) at patient's floor/unit and/or counseling patient: Coding Level of Care Code 74228 INT INP/OBS CARE 3/75MIN Diagnoses Atrial flutter I48.92 Septic shock A41.9; R65.21 Anaplasmosis A77.49
[2025-05-29 15:57] LABS: ANTI-Xa, UFH(UnfractionatedHep 0.59 IU/ml (0.3-0.7)
[2025-05-29] MEDS: PLASMA-LYTE A 500 ML IV ONE (16:42)
[2025-05-29] MEDS: ALBUMIN 5% 250 ML IV ONE (22:29)
[2025-05-30 04:34] LABS: Hematocrit (blood only) 34.6 % (42.0-52.0); Hemoglobin 11.5 g/dl (14.0-18.0); Mean Corpuscular Hemoglobin 30.5 pg (25.0-34.0); Mean Corpuscular Volume 91.8 fL (80.0-100.0); Platelet Count 209 K/uL (130-400); RDW Standard Deviation 53.4 fL (36.4-46.3); Red Blood Count 3.77 M/uL (4.70-6.10); White Blood Count 7.15 K/ul (4.8-10.8)
[2025-05-30 04:56] LABS: Anion Gap 6.0 (3-11); Blood Urea Nitrogen 25.0 mg/dl (6-23); Calcium 8.1 mg/dl (8.6-10.3); Carbon Dioxide 25.0 mmol/L (21-32); Chloride 105.0 mmol/L (98-107); Creatine Kinase 29.0 U/L (30-223); Creatinine Clr Calc Pharmacy 71.3 ml/min; Glucose 139.0 mg/dl (70-99(Fasting)); Magnesium 2.6 mg/dl (1.7-2.4); Potassium 4.4 mmol/L (3.5-5.1); Sodium 136.0 mmol/L (136-145)
[2025-05-30 05:03] LABS: ANTI-Xa, UFH(UnfractionatedHep 0.55 IU/ml (0.3-0.7)
[2025-05-30 05:31] LABS: Immature Granulocytes # (auto) 0.01 K/uL (0.01-0.20); Immature Granulocytes % (auto) 0.1 %
--- NOTE | 2025-05-30 08:22 | Critical Care Progress Note ---
Date of Service May 30, 2025 Assessment & Plan (1) Anaplasmosis: (2) Septic shock: (3) Acute kidney injury: (4) Dehydration fever: (5) Lactic acidosis: (6) Acute metabolic encephalopathy: Plan Reason Critically Ill: 1. Acute metabolic encephalopathy i/s/o fever and hypotension, resolved 2. Anaplasmosis 3. Septic shock 2/2 #2 4. Acute kidney injury, prerenal 5. HAGMA 2/2 lactic acidosis 6. Atrial flutter with variable AV block 7. ILD Neuro - [facility] ICU: Negative RASS GOAL 0 APAP PRN pain/fever Sleep hygiene Cardiac - -- Septic shock Likely from anaplasmosis Continue doxycycline Continue vasopressor support to keep MAP greater than 65 -- New onset A-fib [id number] 2 Continue with heparin drip Follow-up 2D echo Respiratory - CTA chest 05/28/2025 personally reviewed: Motion degraded study Minimally increased reticular marking appreciated on the periphery especially in the right upper lobe followed by bilateral lower lobe Dependent atelectasis bilateral lower lobes No significant mediastinal lymphadenopathy --ILD Subtle changes are appreciated on the CAT scan of the chest No personal or family history of any autoimmune disease like lupus, sarcoid, Sjogren's, rheumatoid No Raynaud's No family history of pulmonary disease Autoimmune workup will be ordered for the patient Would recommend outpatient HRCT as well as pulmonary function test GI - No acute concerns Hepatic steatosis noted on CT AP Diet: Advance as tolerated SUP: N/A Bowel regimen: Miralax RENAL/LYTES - -- JENNIFER --> improving Monitor BUN/creatinine Avoid nephrotoxic medications Strict ins and outs ENDO - -- Diabetes type 2 HbA1c 7.0 Continue with ICU hypoglycemia protocol HEME - -- Anaplasmosis Anaplasmosis smear +, awaiting infected neutrophil count/% Continue doxycycline Monitor H&H ID - -- Anaplasmosis, no other clear source of infection on work-up Continue Doxycycline, consider D/C Zosyn Respiratory BioFire negative for everything on 05/28/2025 --Prophylaxis VTE: Heparin drip GI: None Lines: Peripheral Diet: Cardiac Plan: In/out: +1.4 L, urine output 2100 mL, +5.3 L since coming to the hospital Continue with doxycycline for at least 10 days Try to wean off vasopressors while keeping the MAP greater than 65 Will give Plasma-Lyte 100 mL an hour for half a liter and reassess Autoimmune workup to be done tomorrow for underlying ILD He saturating well on room air, does not need any intervention right now Outpatient PFT and HRCT Case discussed with primary team Please note the above document was generated using voice recognition software. It may contain grammatical, syntax or spelling errors.Any formal questions or concerns about the content, text or information contained within the body of this dictation should be directly addressed to the provider for clarification. Admission and Anticipated Discharge Date Admission Date: May 28, 2025 Subjective Patient seen and examined at bedside. No acute distress, no adverse events overnight He was saturating on room air 95%, systolic blood pressure was in the high 90s with MAP in the 70s. Denied any nausea or vomiting Fair appetite No unusual headache or blurry vision Review of Systems 2 Review of Systems: All systems reviewed & are unremarkable except as noted in Subjective Physical Exam 2 Physical Exam: Constitutional: No acute distress HEENT: EOMI, PERRLA Respiratory system: Good air entry bilaterally, no wheeze, no rhonchi, minimal crackles bilaterally, non Velcro CVS: S1-S2 positive, no murmurs or gallops, irregular Abdomen: Soft, nontender, nondistended, positive bowel sounds x4 Extremities: +2 pulses bilaterally radialis/ dorsalis pedis, no cyanosis, minimal pitting edema bilateral lower extremity Neuro: Awake alert oriented x3 Psych: Normal mood and affect G/U: No Mccormick Skin: no rashes, warm and dry Lymphatic: no cervical or axillary lymphadenopathy Results & Data Results & Data Vital Signs (Past 12 Hours) Vital Signs Temp Pulse Pulse Resp BP BP Pulse Ox 05/30/25 07:00 37.2 C 72 22 93/59 L 95 05/30/25 06:09 62 18 88 L 05/30/25 05:45 98/60 L 05/30/25 05:36 66 22 91 05/30/25 05:31 107/56 L 05/30/25 05:30 70 16 92 05/30/25 05:27 72 18 92 05/30/25 05:00 98/63 L 05/30/25 04:30 110/67 05/30/25 04:24 99 H 21 94 05/30/25 04:00 100/63 05/30/25 04:00 60 21 92 05/30/25 03:45 62 23 90 05/30/25 03:00 60 23 93 05/30/25 03:00 93/66 L 05/30/25 02:45 70 22 93 05/30/25 02:39 70 23 92 05/30/25 02:30 100/63 05/30/25 02:24 69 19 91 05/30/25 02:15 107/60 05/30/25 02:00 95/57 L 05/30/25 02:00 79 18 93 05/30/25 01:45 108/64 05/30/25 01:42 87 22 93 05/30/25 01:39 72 23 93 05/30/25 01:30 100/61 05/30/25 01:15 110/65 05/30/25 01:12 84 14 94 05/30/25 01:03 67 21 94 05/30/25 01:00 94/55 L 05/30/25 00:54 74 23 93 05/30/25 00:45 104/64 05/30/25 00:30 107/60 05/30/25 00:30 73 17 94 05/30/25 00:15 72 15 93 05/30/25 00:15 105/58 L 05/30/25 00:06 70 17 94 05/30/25 00:00 71 05/30/25 00:00 107/61 05/29/25 23:57 70 26 H 95 05/29/25 23:45 89/54 L 05/29/25 23:33 71 22 05/29/25 23:31 82/43 L 05/29/25 23:31 82/43 L 05/29/25 23:30 65 23 93 05/29/25 23:00 91/55 L 05/29/25 23:00 74 0 L 93 05/29/25 22:33 69 20 93 05/29/25 22:30 92/48 L 05/29/25 22:18 75 20 94 05/29/25 22:13 89/56 L 05/29/25 22:12 65 25 H 93 05/29/25 22:06 69 23 93 05/29/25 21:42 104 H 14 95 05/29/25 21:30 102/62 05/29/25 21:21 78 18 94 05/29/25 21:03 78 27 H 92 05/29/25 21:00 88/59 L 05/29/25 20:45 115 H 23 96 05/29/25 20:33 96 H 20 93 05/29/25 20:31 97/61 L O2 Del Method 05/30/25 07:00 Room Air 05/30/25 06:09 05/30/25 05:45 05/30/25 05:36 05/30/25 05:31 05/30/25 05:30 05/30/25 05:27 05/30/25 05:00 05/30/25 04:30 05/30/25 04:24 05/30/25 04:00 05/30/25 04:00 05/30/25 03:45 05/30/25 03:00 05/30/25 03:00 05/30/25 02:45 05/30/25 02:39 05/30/25 02:30 05/30/25 02:24 05/30/25 02:15 05/30/25 02:00 05/30/25 02:00 05/30/25 01:45 05/30/25 01:42 05/30/25 01:39 05/30/25 01:30 05/30/25 01:15 05/30/25 01:12 05/30/25 01:03 05/30/25 01:00 05/30/25 00:54 05/30/25 00:45 05/30/25 00:30 05/30/25 00:30 05/30/25 00:15 05/30/25 00:15 05/30/25 00:06 05/30/25 00:00 05/30/25 00:00 05/29/25 23:57 05/29/25 23:45 05/29/25 23:33 05/29/25 23:31 05/29/25 23:31 05/29/25 23:30 05/29/25 23:00 05/29/25 23:00 05/29/25 22:33 05/29/25 22:30 05/29/25 22:18 05/29/25 22:13 05/29/25 22:12 05/29/25 22:06 05/29/25 21:42 05/29/25 21:30 05/29/25 21:21 05/29/25 21:03 05/29/25 21:00 05/29/25 20:45 05/29/25 20:33 05/29/25 20:31 Laboratory Results 05/30/25 04:14 05/30/25 04:14 Coding Level of Care Code 44223 SUB INP/OBS CARE 2MIN Diagnoses Anaplasmosis A77.49 Septic shock A41.9; R65.21 Acute kidney injury N17.9 Dehydration fever R50.9 Lactic acidosis E87.20 Acute metabolic encephalopathy G93.41
--- NOTE | 2025-05-30 10:25 | Hospitalist Progress Note ---
Date of Service May 30, 2025 Assessment & Plan (1) Septic shock: (2) Anaplasmosis: (3) Diabetes mellitus: (4) Hyperlipidemia: Plan 75yo male with history of DM, Hyperlipidemia presenting with two weeks of generalized illness. Patient with sepsis, present on admission with fever, tachycardia, hypotension unresponsive to IV crystalloid resuscitation. 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 -Now resolving -Patient received his sepsis fluid amount of crystalloid at 30mL/kg -Still on pressors, wean per Director Career -May benefit from Midodrine -Doxycycline 100mg IV BID #High anion gap metabolic acidosis -Now resolved #Hyperlipidemia -Continue Atorvastatin 40mg PO daily #Diabetes - patient on Jardiance -Lantus 5u BID -ISS -Goal blood sugar 110 - 180 #Hypomagnesemia - Mg=0.9 Replaced #Hypophosphatemia -KPhos 21mmol with repeat labs in AM, continue repletion as needed #Diffuse pulmonary fibrosis noted on CTA chest. Patient with no known diagnosis of such. Denies complaint of SOB, cough or wheeze -Outpatient follow up with Pulm for high resolution CT and PFT Admission and Anticipated Discharge Date Admission Date: May 28, 2025 Subjective patient seen and examined, feels a lot better today, low dose pressor was restarted overnight Review of Systems Review of Systems: All systems reviewed are negative, apart from the ones contained in the history. Physical Exam Physical Exam: The patient is awake, alert and oriented 3, well developed and well nourished, normocephalic and atraumatic, lying in bed and in no acute distress. HEENT--PERRL, EOMI, mucous membranes and oropharynx mildly dry Neck--supple. No JVD. No bruits. Thyroid normal, trachea midline, no adenopathy. Heart--normal S1 and S2. No murmurs, rubs or gallops. Lungs--clear bilaterally, no respiratory distress, no accessory muscle use. Abdomen--normal bowel sounds and soft. Extremities--no cyanosis or clubbing. No edema. Dermatologic--normal skin turgor, normal color, no abnormal lymph nodes, no rash. Neurologic--cranial nerves II through XII grossly intact. Rheumatologic--normal range of motion. Psychiatric--normal affect. Results & Data Results & Data Vital Signs (Past 12 Hours) Vital Signs Temp Pulse Pulse Resp BP BP Pulse Ox 05/30/25 08:00 62 05/30/25 08:00 05/30/25 07:00 99.0 F 72 22 93/59 L 95 05/30/25 06:09 62 18 88 L 05/30/25 05:45 98/60 L 05/30/25 05:36 66 22 91 05/30/25 05:31 107/56 L 05/30/25 05:30 70 16 92 05/30/25 05:27 72 18 92 05/30/25 05:00 98/63 L 05/30/25 04:30 110/67 05/30/25 04:24 99 H 21 94 05/30/25 04:00 100/63 05/30/25 04:00 60 21 92 05/30/25 03:45 62 23 90 05/30/25 03:00 60 23 93 05/30/25 03:00 93/66 L 05/30/25 02:45 70 22 93 05/30/25 02:39 70 23 92 05/30/25 02:30 100/63 05/30/25 02:24 69 19 91 05/30/25 02:15 107/60 05/30/25 02:00 95/57 L 05/30/25 02:00 79 18 93 05/30/25 01:45 108/64 05/30/25 01:42 87 22 93 05/30/25 01:39 72 23 93 05/30/25 01:30 100/61 05/30/25 01:15 110/65 05/30/25 01:12 84 14 94 05/30/25 01:03 67 21 94 05/30/25 01:00 94/55 L 05/30/25 00:54 74 23 93 05/30/25 00:45 104/64 05/30/25 00:30 107/60 05/30/25 00:30 73 17 94 05/30/25 00:15 72 15 93 05/30/25 00:15 105/58 L 05/30/25 00:06 70 17 94 05/30/25 00:00 71 05/30/25 00:00 107/61 05/29/25 23:57 70 26 H 95 05/29/25 23:45 89/54 L 05/29/25 23:33 71 22 05/29/25 23:31 82/43 L 05/29/25 23:31 82/43 L 05/29/25 23:30 65 23 93 05/29/25 23:00 91/55 L 05/29/25 23:00 74 0 L 93 05/29/25 22:33 69 20 93 05/29/25 22:30 92/48 L O2 Del Method 05/30/25 08:00 05/30/25 08:00 Room Air 05/30/25 07:00 Room Air 05/30/25 06:09 05/30/25 05:45 05/30/25 05:36 05/30/25 05:31 05/30/25 05:30 05/30/25 05:27 05/30/25 05:00 05/30/25 04:30 05/30/25 04:24 05/30/25 04:00 05/30/25 04:00 05/30/25 03:45 05/30/25 03:00 05/30/25 03:00 05/30/25 02:45 05/30/25 02:39 05/30/25 02:30 05/30/25 02:24 05/30/25 02:15 05/30/25 02:00 05/30/25 02:00 05/30/25 01:45 05/30/25 01:42 05/30/25 01:39 05/30/25 01:30 05/30/25 01:15 05/30/25 01:12 05/30/25 01:03 05/30/25 01:00 05/30/25 00:54 05/30/25 00:45 05/30/25 00:30 05/30/25 00:30 05/30/25 00:15 05/30/25 00:15 05/30/25 00:06 05/30/25 00:00 05/30/25 00:00 05/29/25 23:57 05/29/25 23:45 05/29/25 23:33 05/29/25 23:31 05/29/25 23:31 05/29/25 23:30 05/29/25 23:00 05/29/25 23:00 05/29/25 22:33 05/29/25 22:30 PG Care Time/CCT Total # of Minutes Spent Total Time Spent with Patient: Total time spent is greater than 50% in coordination of care (as documented) at patient's floor/unit and/or counseling patient: Coding Level of Care Code 95333 SUB INP/OBS CARE 2/35MIN Diagnoses Septic shock A41.9; R65.21 Anaplasmosis A77.49 Diabetes mellitus E11.9 Hyperlipidemia E78.5 Time Spent (min) 35
[2025-05-30] MEDS: APIXABAN 5 MG TABLET PO ONE (14:04)
--- NOTE | 2025-05-30 14:26 | Cardiology Progress Note ---
Date of Service May 30, 2025 Assessment & Plan (1) Atrial flutter: (2) Septic shock: (3) Anaplasmosis: (4) Persistent atrial fibrillation: Plan ASSESSMENT/PLAN: 1. Atrial flutter/fibrillation: Initial ECG demonstrated atrial flutter, but atrial fibrillation on telemetry and repeat ECG. Fortunately, adequately rate controlled without rate controlling therapy. Asymptomatic. Onset unknown, but may be related to anaplasmosis/septic shock. Agree with anticoagulation therapy if no contraindication. May spontaneously convert with improvement of underlying infection. If not, could consider cardioverting in the future, but not necessary urgently. Monitor CBC while anticoagulating. 2. Anaplasmosis/septic shock: As per primary hospitalist and critical care service. Pressors have been weaned off. 3. Pulmonary fibrosis: As per hospitalist/critical care team. 4. Disposition: [facility] cardiology will resume his care on 05/31/2025. He already has follow-up scheduled with Dr. Vo in June 2025. Admission and Anticipated Discharge Date Admission Date: May 28, 2025 Subjective Patient was seen today with his and daughter at the bedside. He denies chest pain, shortness of breath, syncope, near syncope, palpitations, edema, or bleeding. Norepinephrine has been weaned off. Physical Exam Physical Exam: Gen.: No acute distress. Alert. HEENT: Anicteric sclera. Neck: No JVD. Cardiac: Irregularly irregular. Normal heart rate. Normal S1-S2. No murmurs, rubs, or gallops. Pulmonary: Clear to auscultation bilaterally without wheezes, rales, or rhonchi. Abdomen: Soft, nontender, nondistended, with normoactive bowel sounds. No bruits noted. Extremities: 2+ radial pulses bilaterally. 2+ posterior tibialis pulses bilaterally. No edema or cyanosis. Results & Data Vital Signs (Past 12 Hours) Vital Signs Temp Pulse Pulse Resp BP BP Pulse Ox 05/30/25 13:33 79 24 96 05/30/25 13:33 113/63 05/30/25 13:31 97/63 L 05/30/25 13:18 74 21 95 05/30/25 13:00 70 19 90 05/30/25 12:57 68 17 92 05/30/25 12:30 109/65 05/30/25 12:12 77 16 92 05/30/25 12:00 71 12 94 05/30/25 12:00 93/62 L 05/30/25 11:31 114/56 L 05/30/25 11:30 75 17 96 05/30/25 11:14 96/63 L 05/30/25 11:00 89/55 L 05/30/25 10:54 70 22 93 05/30/25 10:36 71 20 94 05/30/25 10:30 109/64 05/30/25 10:24 76 20 91 05/30/25 10:06 79 16 93 05/30/25 10:01 116/68 05/30/25 09:48 73 19 94 05/30/25 09:33 76 21 95 05/30/25 09:31 97/65 L 05/30/25 09:31 97/65 L 05/30/25 09:27 24 94 05/30/25 09:23 97/68 L 05/30/25 09:21 71 21 93 05/30/25 09:09 68 24 92 05/30/25 09:00 99/61 L 05/30/25 09:00 99/61 L 05/30/25 08:21 75 24 93 05/30/25 08:01 120/98 05/30/25 08:00 27 H 85 L 05/30/25 08:00 62 05/30/25 08:00 05/30/25 07:30 100/58 L 05/30/25 07:30 17 95 05/30/25 07:09 76 20 95 05/30/25 07:00 93/59 L 05/30/25 07:00 37.2 C 72 22 93/59 L 95 05/30/25 06:57 77 22 94 05/30/25 06:40 104/64 05/30/25 06:36 76 22 95 05/30/25 06:33 75 16 95 05/30/25 06:30 117/62 05/30/25 06:27 81 26 H 94 05/30/25 06:09 62 18 88 L 05/30/25 05:45 98/60 L 05/30/25 05:36 66 22 91 05/30/25 05:31 107/56 L 05/30/25 05:30 70 16 92 05/30/25 05:27 72 18 92 0727/25 05:00 98/63 L 05/30/25 04:30 110/67 05/30/25 04:24 99 H 21 94 05/30/25 04:00 100/63 05/30/25 04:00 60 21 92 05/30/25 03:45 62 23 90 05/30/25 03:00 60 23 93 05/30/25 03:00 93/66 L 05/30/25 02:45 70 22 93 05/30/25 02:39 70 23 92 05/30/25 02:30 100/63 05/30/25 02:24 69 19 91 O2 Del Method 05/30/25 13:33 05/30/25 13:33 05/30/25 13:31 05/30/25 13:18 05/30/25 13:00 05/30/25 12:57 05/30/25 12:30 05/30/25 12:12 05/30/25 12:00 05/30/25 12:00 05/30/25 11:31 05/30/25 11:30 05/30/25 11:14 05/30/25 11:00 05/30/25 10:54 05/30/25 10:36 05/30/25 10:30 05/30/25 10:24 05/30/25 10:06 05/30/25 10:01 05/30/25 09:48 05/30/25 09:33 05/30/25 09:31 05/30/25 09:31 05/30/25 09:27 05/30/25 09:23 05/30/25 09:21 05/30/25 09:09 05/30/25 09:00 05/30/25 09:00 05/30/25 08:21 05/30/25 08:01 05/30/25 08:00 05/30/25 08:00 05/30/25 08:00 Room Air 05/30/25 07:30 05/30/25 07:30 05/30/25 07:09 05/30/25 07:00 05/30/25 07:00 Room Air 05/30/25 06:57 05/30/25 06:40 05/30/25 06:36 05/30/25 06:33 05/30/25 06:30 05/30/25 06:27 05/30/25 06:09 05/30/25 05:45 05/30/25 05:36 05/30/25 05:31 05/30/25 05:30 05/30/25 05:27 05/30/25 05:00 05/30/25 04:30 05/30/25 04:24 05/30/25 04:00 05/30/25 04:00 05/30/25 03:45 05/30/25 03:00 05/30/25 03:00 05/30/25 02:45 05/30/25 02:39 05/30/25 02:30 05/30/25 02:24 Laboratory Results Laboratory Results - last 24 hr 05/29/25 05/29/25 05/29/25 14:55 15:18 20:23 WBC RBC Hgb Hct MCV MCH MCHC RDW Std Deviation RDW Coeff of Noemy Plt Count MPV Immature Gran % (Auto) Neut % (Auto) Lymph % (Auto) Ashe % (Auto) Eos % (Auto) Baso % (Auto) Neut # (Auto) Lymph # (Auto) Ashe # (Auto) Eos # (Auto) Baso # (Auto) Immature Gran # (Auto) Echinocytes ESR Heparin Anti-Xa, Unfract 0.59 Sodium Potassium Chloride Carbon Dioxide Anion Gap BUN Creatinine Est Cr Clr Drug Dosing eGFR BUN/Creatinine Ratio Glucose POC Glucose 204 H 145 H Calcium Phosphorus Magnesium Total Creatine Kinase C-Reactive Protein Rheumatoid Factor Cycl Citrul Peptide IgG JUANI Screen Proteinase 3 (PR3) Anti-Neutrophil (Flow) ELIZABETH-1 Antibody SS-A/Ro Antibody SS-B/La Antibody Sm (Thomas) Antibody RETAIL STOCKER Antibody Scl-70 Scleroderma Ab Anti-ds DNA (Crithidia) Chromatin Antibody Anti-Centromere Ab Thyroid Antimicrosomal Anti-Cardiolipin IgG Ab Anti-Cardiolipin IgA Ab Anti-Cardiolipin IgM Ab Complement C3 Complement C4 05/30/25 05/30/25 05/30/25 04:14 07:03 10:51 WBC 7.15 RBC 3.77 L Hgb 11.5 L Hct 34.6 L MCV 91.8 MCH 30.5 MCHC 33.2 RDW Std Deviation 53.4 H RDW Coeff of Noemy 15.8 H Plt Count 209 MPV 9.7 Immature Gran % (Auto) 0.1 Neut % (Auto) 52.4 Lymph % (Auto) 37.2 Ashe % (Auto) 7.8 Eos % (Auto) 1.8 Baso % (Auto) 0.7 Neut # (Auto) 3.74 Lymph # (Auto) 2.66 Ashe # (Auto) 0.56 Eos # (Auto) 0.13 Baso # (Auto) 0.05 Immature Gran # (Auto) 0.01 Echinocytes 1+ ESR 60 H Heparin Anti-Xa, Unfract 0.55 Sodium 136 Potassium 4.4 Chloride 105 Carbon Dioxide 25 Anion Gap 6 BUN 25 H Creatinine 1.06 Est Cr Clr Drug Dosing 71.3 eGFR 73.64 BUN/Creatinine Ratio 23.6 H Glucose 139 H POC Glucose 200 H 141 H Calcium 8.1 L Phosphorus 3.0 Magnesium 2.6 H Total Creatine Kinase 29 L C-Reactive Protein 10.34 H Rheumatoid Factor Pending Cycl Citrul Peptide IgG Pending JUANI Screen Pending Proteinase 3 (PR3) Pending Anti-Neutrophil (Flow) Pending ELIZABETH-1 Antibody Pending SS-A/Ro Antibody Pending SS-B/La Antibody Pending Sm (Thomas) Antibody Pending RETAIL STOCKER Antibody Pending Scl-70 Scleroderma Ab Pending Anti-ds DNA (Crithidia) Pending Chromatin Antibody Pending Anti-Centromere Ab Pending Thyroid Antimicrosomal Pending Anti-Cardiolipin IgG Ab Pending Anti-Cardiolipin IgA Ab Pending Anti-Cardiolipin IgM Ab Pending Complement C3 Pending Complement C4 Pending Diagnostic Findings Telemetry personally reviewed: Rate controlled atrial fibrillation. Labs reviewed and notable for stable renal function, stable anemia, normal potassium. ECG personally reviewed from 05/29/2025 at 1730: Atrial fibrillation 74 bpm. RBBB. Possible anterolateral infarct. Critical care progress note reviewed from today. Medications Administered Current Inpatient Medications Acetaminophen (Acetaminophen 325 Mg Tab) 650 mg PO Q4H PRN PRN Reason: Pain or Fever Stop: 06/27/25 23:46 Apixaban (Apixaban 5 Mg Tablet) 5 mg PO BID JOEY Stop: 06/29/25 20:59 Atorvastatin Calcium (Atorvastatin 40 Mg Tab) 40 mg PO DAILY JOEY Stop: 06/28/25 08:59 Last Admin: 05/30/25 08:48 Dose: 40 mg Dextrose (Dextrose 50% 50 Ml Syringe) 25 - 50 ml IV UD PRN; Protocol PRN Reason: Hypoglycemia Protocol Stop: 06/27/25 23:46 Docusate Sodium (Docusate Sodium 100 Mg Cap) 100 mg PO BID PRN PRN Reason: Constipation Stop: 06/27/25 23:46 Glucagon (Glucagon For Inj 1 Mg Vial) 1 mg SQ UD PRN; Protocol PRN Reason: Hypoglycemia Protocol Stop: 06/27/25 23:46 Glucose (Glucose 40% Gel 15 Gm Tube) 15 - 30 gm PO UD PRN; Protocol PRN Reason: Hypoglycemia Protocol Stop: 06/27/25 23:46 Glucose (Glucose 10 Tab/Tube) 4 - 8 tab PO UD PRN; Protocol PRN Reason: Hypoglycemia Protocol Stop: 06/27/25 23:46 Doxycycline Hyclate 100 mg/ (Dextrose) 100 mls @ 50 mls/hr IV Q12H JOEY Stop: 06/12/25 08:59 Last Infusion: 05/30/25 10:57 Dose: Infused Insulin Aspart (Insulin Aspart Per Unit Charge) 0 units SC ACHS JOEY Stop: 06/28/25 00:00 Last Admin: 05/30/25 11:40 Dose: 4 units Insulin Glargine (Lantus Per Unit Charge) 5 units SQ BID JOEY Stop: 06/28/25 08:59 Last Admin: 05/30/25 08:47 Dose: 5 units Miscellaneous (Carbohydrates For Hypoglycemia ) 15 - 30 gm PO UD PRN PRN Reason: Hypoglycemia Protocol Stop: 06/27/25 23:46 Ondansetron HCl (Ondansetron Inj 2 Mg/Ml 2 Ml Vial) 4 mg IV Q6H PRN PRN Reason: Nausea And Vomiting Stop: 06/27/25 23:46 PG Care Time/CCT Total # of Minutes Spent Total Time Spent with Patient: Total time spent is greater than 50% in coordination of care (as documented) at patient's floor/unit and/or counseling patient: Coding Level of Care Code 37413 SUB INP/OBS CARE 3/50MIN Diagnoses Atrial flutter I48.92 Septic shock A41.9; R65.21 Anaplasmosis A77.49 Persistent atrial fibrillation I48.19
[2025-05-30] MEDS: APIXABAN 5 MG TABLET PO SCH (20:09)
[2025-05-30 20:11] LABS: Anaplasmosis Smear(Rpt to DOH) Pos for Anaplasma
--- NOTE | 2025-05-30 22:21 | Electrocardiogram Report ---
Test Reason : Blood Pressure : */* mmHG Vent. Rate : 115 BPM Atrial Rate : 300 BPM P-R Int : * ms QRS Dur : 138 ms QT Int : 336 ms P-R-T Axes : 218 -32 -23 degrees QTcB Int : 464 ms Atrial flutter with variable A-V block Left axis deviation Right bundle branch block Possible Anterolateral infarct , age undetermined Abnormal ECG No previous ECGs available Confirmed by Chaparro Jordan ([id number]) on 05/30/2025 10:21:18 PM Referred By: REFERRED SELF Confirmed By: Chaparro Jordan
--- NOTE | 2025-05-30 22:22 | Electrocardiogram Report ---
Test Reason : Blood Pressure : */* mmHG Vent. Rate : 74 BPM Atrial Rate : * BPM P-R Int : * ms QRS Dur : 148 ms QT Int : 428 ms P-R-T Axes : * -3 -15 degrees QTcB Int : 475 ms Atrial fibrillation Right bundle branch block Possible Lateral infarct (cited on or before 28-May-2025) Abnormal ECG When compared with ECG of 28-May-2025 18:59, Atrial fibrillation has replaced Atrial flutter Vent. rate has decreased by 41 bpm Confirmed by Chaparro Jordan ([id number]) on 05/30/2025 10:21:37 PM Referred By: REFERRED SELF Confirmed By: Chaparro Jordan
[2025-05-31 02:19] VITALS: RESP 18; TEMP 97.5; O2SAT 96
[2025-05-31 07:14] LABS: ANTI-Xa, UFH(UnfractionatedHep 0.33 IU/ml (0.3-0.7)
[2025-05-31 08:23] VITALS: BP 101/61; PULSE 74
--- NOTE | 2025-05-31 08:41 | Cardiology Progress Note ---
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 Echo 11/2023 showing normal LVEF, mild concentric left ventricular hypertrophy, dilated right ventricle with normal systolic function, calcified tricuspid aortic valve without stenosis or insufficiency, mild tricuspid valve regurgitation, NML pulmonary artery pressures 3. Type 2 diabetes 4. Hyperlipidemia 5. RBBB Mr. Duncan is feeling much better. He does not sense being in afib at all. He is appropriately anticoagulated and should be discharged with blood thinner. We reviewed precautions and that he should avoid NSAIDs while on Eliquis. He can take acetaminophen over the counter if necessary for pain. He would need to be seen urgently if he had a serious injury or head injury. He should let us know if he has black or tarry looking stools or any oliver bleeding or big bruises. He can try a small dose of beta kapil going home 12.5 mg metoprolol succinate. His follow up with Dr. Vo is in 3 weeks. If he is still in afib at that time, we could consider cardioversion. His blood pressure is on the low side of normal. If the beta kapil makes him dizzy, he can stop it altogether. He is rate controlled on his own. I asked him to walk the halls and see how he feels. Cardiology will sign off at this time. Admission and Anticipated Discharge Date Admission Date: May 28, 2025 Subjective Mr. Duncan feels better today. He was transferred out of ICU over the night to PCU. Afib on the monitor rate controlled in the 70s. No chest pain, sob, palpitations or edema. He does not feel being in afib. Review of Systems Review of Systems: All systems reviewed & are unremarkable except as noted in HPI & below Physical Exam Constitutional: WD/WN, vitals as above Respiratory: normal respiratory effort, lungs clear to auscultation Cardiovascular: Rate/Rhythm: + abnormal rate and + abnormal rhythm Heart Sounds: normal S1 and normal S2 Extremities: no edema Skin: no rashes, warm and dry Neurologic: moves all extremities and awake Psychiatric: A+Ox3, euthymic affect Results & Data Vital Signs (Past 12 Hours) Vital Signs Temp Pulse Pulse Resp BP Pulse Ox O2 Del Method 05/31/25 08:22 36.4 C L 74 18 101/61 96 Room Air 05/31/25 02:18 36.4 C L 80 18 108/59 L 96 Room Air 05/31/25 00:00 67 Diagnostic Findings Echo: Normal LVEF, EF 60 to 65%, no regional wall motion abnormalities, moderate concentric left ventricular hypertrophy, mildly dilated right ventricle with normal systolic function, sclerotic aortic valve with trace regurgitation, normal RVSP
--- NOTE | 2025-05-31 11:45 | Discharge Summary ---
Date of Service May 31, 2025 Admission HPI Per Admitting Provider Jordon Duncan is a pleasant 75yo male with history of DM, HLP presenting with two weeks of subjective fever, chills, weakness and some confusion as well as difficulty ambulating. Patient reports that [place] got [place] in the [place]. He went home and changed clothes then began feeling chills and fatigue. He continued to feel fatigued, persistent for the last several weeks. He was seen at [facility] and told that he likely had a virus and that he would likely feel better soon. He denies cough, SOB, chest pain, joint pain, rash, abdominal pain, nausea, vomiting, diarrhea, urinary complaints. No additional complaints at this time. He reports that his symptoms have been progressive - he has some time that he feels a little improved but overall has not been feeling well. He does not recall a tick bite but has dogs that occasionally have ticks and has deer that pass through his property frequently. In the ER he has elevated temperature at 39.9, tachycardia at 107bpm, hypotension with blood pressure in the 70/50's. He was administered 2L crystalloid with persistent hypotension therefore was started on Levophed. When evaluated he was on Levophed 0.07mcg/kg/min with adequately controlled blood pressure. ER Course: NSS x 2.5L Tylenol 1gm Zosyn 4.5gm Vancomycin 2250 mg IV Doxycycline 100mg IV Levophed Admission Exam (Per Admitting) Constitutional The patient is awake, alert and oriented 3, well developed and well nourished, normocephalic and atraumatic, lying in bed and in no acute distress. HEENT--PERRL, EOMI, mucous membranes and oropharynx mildly dry Neck--supple. No JVD. No bruits. Thyroid normal, trachea midline, no adenopathy. Heart--normal S1 and S2. No murmurs, rubs or gallops. Lungs--clear bilaterally, no respiratory distress, no accessory muscle use. Abdomen--normal bowel sounds and soft. Extremities--no cyanosis or clubbing. No edema. Dermatologic--normal skin turgor, normal color, no abnormal lymph nodes, no rash. Neurologic--cranial nerves II through XII grossly intact. Rheumatologic--normal range of motion. Psychiatric--normal affect. Discharge Data Consultations 05/28/25 21:11 ED Decision to Admit Stat 05/28/25 23:47 Consult [employer] Routine 05/29/25 00:37 Consult Cardiology Routine Hospital Course (1) Septic shock: (2) Anaplasmosis: (3) Diabetes mellitus: (4) Hyperlipidemia: Plan 75yo male with history of DM, Hyperlipidemia presenting with two weeks of generalized illness. Patient with sepsis, present on admission with fever, tachycardia, hypotension unresponsive to IV crystalloid resuscitation. 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 -Now resolving -Patient received his sepsis fluid amount of crystalloid at 30mL/kg -Still on pressors, wean per [employer] [employer] -May benefit from Midodrine -Doxycycline 100mg IV BID -Discharged on p.o. doxycycline 100 mg twice daily for 7 more days Atrial fibrillation New onset atrial fibrillation, initially was Uyen However repeats EKG this morning shows persistent atrial fibrillation with rates under good control Will prescribe low-dose metoprolol 25 mg daily Also discharged on Eliquis 5 mg twice daily Outpatient follow-up with Dr. Vo cardiology #High anion gap metabolic acidosis -Now resolved #Hyperlipidemia -Continue Atorvastatin 40mg PO daily #Diabetes - patient on Jardiance -Lantus 5u BID -ISS -Goal blood sugar 110 - 180 #Hypomagnesemia - Mg=0.9 Replaced #Hypophosphatemia -KPhos 21mmol with repeat labs in AM, continue repletion as needed #Diffuse pulmonary fibrosis noted on CTA chest. Patient with no known diagnosis of such. Denies complaint of SOB, cough or wheeze -Outpatient follow up with Pulm for high resolution CT and PFT Coding Level of Care Code 13076 INP/OBS DISCH >30 MIN Diagnoses Septic shock A41.9; R65.21 Anaplasmosis A77.49 Diabetes mellitus E11.9 Hyperlipidemia E78.5 Time Spent (min) 35
[2025-06-01] MEDS ORDERED: METOPROLOL SUCC 25MG EXT REL TAB PO SCH (09:00)
--- NOTE | 2025-06-01 22:18 | Electrocardiogram Report ---
Test Reason : Blood Pressure : */* mmHG Vent. Rate : 65 BPM Atrial Rate : * BPM P-R Int : * ms QRS Dur : 148 ms QT Int : 444 ms P-R-T Axes : * -14 -22 degrees QTcB Int : 461 ms Atrial fibrillation Right bundle branch block Abnormal ECG When compared with ECG of 29-May-2025 17:30, No significant change was found Confirmed by Chaparro Jordan ([id number] on 06/01/2025 10:18:32 PM Referred By: REFERRED SELF Confirmed By: Chaparro Jordan
== END 2025-05-31 12:07 | disposition home or self-care (01) | DRG 871 ==
LOC: ED 18:52 → 1E 22:36 → SUATTDRO 22:36 → 1E 23:26 → 2S 05-31 02:13